=== PATIENT | female | born 1970 | race Caucasian/White ===

== ENCOUNTER → 2018-03-19 | Outpatient (CLI) | payer BC ==
[2018-03-19 12:33] LABS: Anisocytosis Slight; Basophils # (A) 0.1 k/uL (0-0.2); Basophils % (A) 1 %; Eosinophils # (A) 0.3 k/uL (0-0.7); Eosinophils % (A) 4 %; HCT 43.2 % (34.0-46.0); HGB 13.3 gm/dL (11.4-16.0); Hypochromasia Marked; Lymphocytes # (A) 2.1 k/uL (1.0-4.8); Lymphocytes % (A) 23 %; MCH 24.3 pg (25.0-35.0); MCHC 30.8 g/dL (31.0-37.0); MCV 78.9 fL (80.0-100.0); Mean Platelet Volume 7.3; Microcytosis Slight; Monocytes # (A) 0.5 k/uL (0-1.0); Monocytes % (A) 5 %; Neutrophils # (A) 5.6 k/uL (1.3-7.7); Neutrophils % (A) 64 %; Platelet Count 328 k/uL (150-450); RBC 5.48 m/uL (3.80-5.40); RDW 16.3 % (11.5-15.5); WBC 8.9 k/uL (3.8-10.6)
== END | disposition home or self-care (01) ==
LOC: LABPAT 11:48
PROVIDERS: ATTEND Anesthesiology
DX: Z01.812 Encounter for preprocedural laboratory examination (principal); N94.6 Dysmenorrhea, unspecified; N92.0 Excessive and frequent menstruation with regular cycle; Z01.818 Encounter for other preprocedural examination
CPT/HCPCS: 36415; 84132; 85025; 93005

== ENCOUNTER 2018-03-26 08:39 | Day surgery (SDC) | payer BC, OTHER ==
[2018-03-18 16:47] VITALS: BMI 47.2
[~2018-03-26 08:39] MED LIST: HYDROmorphone 0.5 MG/0.5 ML SYRINGE IVP PRN; LACTATED RINGERS 1,000 ML IV SCH; ONDANSETRON 4 MG/2 ML VIAL IVP PRN; Pre Op ABX Message 1 EACH MISC MISCELLANE ONE; fentaNYL (PF) 50 MCG/ML 2 ML AMP IV PRN
[2018-03-26 09:42] LABS: Glucose,Whole Blood 136 mg/dL (75-99)
[2018-03-26] MEDS ORDERED: LIDOCAINE 1% 20 ML VIAL (10MG/ML) FOR IV START INTRADERMA ONE (09:43)
[2018-03-26] MEDS ORDERED: DEXAMETHASONE SOD PHOS (MDV) 100 MG/10 ML VIAL IVP ONE (09:44)
[2018-03-26] MEDS ORDERED: ONDANSETRON 4 MG/2 ML VIAL IVP ONE (09:44)
[2018-03-26] MEDS ORDERED: IBUPROFEN 600 MG TAB PO PRN (11:15)
[2018-03-26] MEDS ORDERED: KETOROLAC 30 MG/ML 1 ML VIAL IVP PRN (11:15)
[2018-03-26] MEDS ORDERED: ONDANSETRON 4 MG/2 ML VIAL IVP PRN (11:15)
[2018-03-26] MEDS ORDERED: diphenhydrAMINE 50 MG/ML 1 ML VIAL IVP PRN (11:15)
[2018-03-26] MEDS ORDERED: SIMETHICONE 80 MG CHEWABLE PO PRN (11:15)
[2018-03-26] MEDS ORDERED: METOCLOPRAMIDE 5 MG/ML 2 ML VIAL IVP PRN (11:15)
[2018-03-26] MEDS ORDERED: Acetaminophen-Codeine 300-30mg TAB PO PRN ×2 (11:15)
[2018-03-26] MEDS ORDERED: SUCCINYLCHOLINE CHLORIDE VIAL 200 MG/10 ML VIAL IV ONE (11:20)
[2018-03-26] MEDS ORDERED: fentaNYL (PF) 50 MCG/ML 2 ML AMP ONE (11:20)
[2018-03-26] MEDS ORDERED: PROPOFOL 10 MG/ML 20 ML VIAL IV ONE (11:20)
[2018-03-26] MEDS ORDERED: KETOROLAC 30 MG/ML 1 ML VIAL ONE (11:20)
[2018-03-26] MEDS ORDERED: LIDOCAINE 1% INJ 10MG/ML (20 ML MDV) ONE (11:20)
[2018-03-26] MEDS ORDERED: MIDAZOLAM 2 MG/2 ML VIAL ONE (11:20)
[2018-03-26] MEDS ORDERED: LACTATED RINGERS 1,000 ML IV ONE (11:57)
--- NOTE | 2018-03-26 11:58 | P.OP ---
Date of Procedure: 03/26/18 Preoperative Diagnosis: #1. Menorrhagia #2. Dysmenorrhea Postoperative Diagnosis: Same Procedure(s) Performed: #1. Diagnostic hysteroscopy #2. Dilation and curettage #3. NovaSure endometrial ablation Anesthesia: KAELYN Surgeon: Giles Cosme Estimated Blood Loss (ml): 5 IV fluids (ml): 300 Urine output (ml): 75 Pathology: other (Endometrial curettings) Condition: stable Disposition: PACU Operative Findings: Preoperative pelvic examination demonstrated a roughly 5 week midplane mobile normal shaped uterus though the patient's habitus makes examination somewhat difficult. Intraoperatively, the cervix sounded to approximately 3 cm while uterus sounded to approximately 8 cm. Hysteroscopic views of the endometrial cavity demonstrated some shaggy tissue at the fundus with no evidence of polyps or apparent fibroids. The bilateral tubal ostia were seen. A small to moderate amount of tissue was curetted onto a Telfa and sent for pathological diagnoses. The setting for the NovaSure tool was a length of 5.0 cm, a width of 4.5 cm, total power 124 W. After a total run time of 59 seconds, the base unit read "procedure complete." The postprocedural result appears excellent. The patient is a poor candidate for vaginal hysterectomy should it become necessary. Description of Procedure: The patient was prepped and draped in usual fashion after general endotracheal anesthesia was administered by the anesthesiologist. A weighted speculum was placed and the bladder drained of approximately 75 mL of clear mian urine. The anterior lip of the cervix was grasped with single-tooth tenaculum and the cervix and uterus sounded to 3 cm and 8 cm respectively. Serial dilation was carried out to admit the diagnostic hysteroscope which was placed to the fundus and hysteroscopy carried out with the findings as noted above. There was no apparent pathology and the bilateral tubal ostia were seen. Further dilation was carried out to admit a small sharp curette which was utilized to thoroughly and circumferentially curet the endometrial cavity with the tissue being brought through the cervix onto a Telfa placed in the vagina. There was a small to moderate amount of tissue present. The sharp curet was set aside in favor of the NovaSure tool which was placed into the endometrial cavity and seated well at the settings are as noted above with a length of 5.0 cm and a width of 4.5 cm resulting in a total power 124 W. The cavity check was attempted and passed without difficulty. The tool was enabled and the run was started. After a total run time of 59 seconds, the base unit read "procedure complete." The 2 was closed, removed, and discarded and the diagnostic hysteroscope replaced into the in vitro cavity with resulting excellent result apparent. All instrumentation was removed from the patient. A small point of bleeding along the tenaculum sites was made hemostatic with pressure. Estimated blood loss for the entire case was less than 5 mL. There were no complications. All sponge, instrument, and needle counts were correct. The patient tolerated the procedure well and proceeded to the recovery room in stable condition.
[2018-03-26 12:12] VITALS: TEMP 96.8
[2018-03-26 12:19] VITALS: RESP 18
[2018-03-26 13:08] VITALS: BP 133/61
[2018-03-26 13:27] VITALS: PULSE 70
== END 2018-03-26 13:46 | disposition home or self-care (01) ==
LOC: OR 08:39
PROVIDERS: ATTEND Obstetrics & Gynecology
DX: N85.9 Noninflammatory disorder of uterus, unspecified (principal); N92.0 Excessive and frequent menstruation with regular cycle; N94.6 Dysmenorrhea, unspecified; E11.9 Type 2 diabetes mellitus without complications; I10 Essential (primary) hypertension; G47.33 Obstructive sleep apnea (adult) (pediatric); K21.9 Gastro-esophageal reflux disease without esophagitis; F17.210 Nicotine dependence, cigarettes, uncomplicated; Z88.2 Allergy status to sulfonamides; Z88.5 Allergy status to narcotic agent; Z79.1 Long term (current) use of non-steroidal anti-inflammatories (NSAID); Z79.84 Long term (current) use of oral hypoglycemic drugs; Z79.899 Other long term (current) drug therapy; Z83.3 Family history of diabetes mellitus; Z82.49 Family history of ischemic heart disease and other diseases of the circulatory system
CPT/HCPCS: 58563; 81025; 88305; J2250; J0330; J2405; J2001; J3010; J1885; J1100; J2704

== ENCOUNTER → 2019-07-18 | Outpatient (CLI) | payer BC ==
--- NOTE | 2019-07-18 12:04 | XR ---
EXAMINATION TYPE: XR chest 2V DATE OF EXAM: 07/18/2019 COMPARISON: 04/23/2014 TECHNIQUE: PA and lateral views submitted. HISTORY: Cough and congestion FINDINGS: The lungs are clear and there is no pneumothorax, pleural effusion, or focal pneumonia. Hypertrophic and degenerative change of the spine. IMPRESSION: 1. No acute process.
== END ==
LOC: RADXRMAIN 10:59
PROVIDERS: ATTEND Midwife
DX: J06.9 Acute upper respiratory infection, unspecified (principal)
CPT/HCPCS: 71046

== ENCOUNTER 2020-03-12 16:08 | Emergency (ER) | payer BC ==
--- NOTE | 2020-03-12 17:28 | ED ---
Lower Extremity Injury HPI - General Chief Complaint: Extremity Injury, Lower Stated Complaint: left foot /ankle pain Time Seen by Provider: 03/12/20 17:07 Source: patient Mode of arrival: wheelchair Limitations: physical limitation - History of Present Illness Initial Comments: Patient is a 49-year-old female presenting to the emergency Department with complaints of pain in left foot and ankle. Patient states she stepped on a large dog toy and her left foot overturned. She is unable to bear weight without significant pain. She is describing pain along the lateral aspect of her left foot and up into the left heel. She denies any previous fractures or surgeries to this foot. She denies hitting her head or any other injuries from this fall. She has no further complaints. - Related Data Home Medications Medication Instructions Recorded Confirmed Hydrochlorothiazide [Hydrodiuril] 50 mg PO DAILY 04/23/14 03/26/18 Omeprazole [PriLOSEC] 40 mg PO AC-BRKFST 04/23/14 03/26/18 ALPRAZolam [Xanax] 1 mg PO HS 03/18/18 03/26/18 Cetirizine HCl [Zyrtec] 10 mg PO DAILY PRN 03/18/18 03/26/18 Citalopram Hydrobromide [CeleXA] 20 mg PO DAILY 03/18/18 03/26/18 Empagliflozin/Linagliptin 1 each PO DAILY 03/18/18 03/26/18 [Glyxambi 25 mg-5 mg Tablet] Naproxen 500 mg PO BID PRN 03/18/18 03/26/18 Potassium Chloride [K-Tab ER] 10 meq PO DAILY 03/18/18 03/26/18 Thrive Supplement 1 tab PO DAILY 03/18/18 03/26/18 Allergies Allergy/AdvReac Type Severity Reaction Status Date / Time Sulfa (Sulfonamide Allergy Severe Anaphylaxis, Verified 03/12/20 16:37 Antibiotics) Hives hydrocodone bitartrate AdvReac "High Verified 03/12/20 16:37 [From Vicodin] dose" causes nausea & itching. Review of Systems ROS Statement: Those systems with pertinent positive or pertinent negative responses have been documented in the HPI. ROS Other: All systems not noted in ROS Statement are negative. Past Medical History Past Medical History: Diabetes Mellitus, GERD/Reflux, Sleep Apnea/CPAP/BIPAP Additional Past Medical History / Comment(s): C-PAP MACHINE, SEASONAL ALLERGIES, STRESS INDUCED IBS., SCIATICA, CARPAL TUNNEL SYNDROME BENI HANDS., MENORRHAGIA., STATES OCCASIONAL SWELLING IN HANDS & FEET. History of Any Multi-Drug Resistant Organisms: MRSA Date of last positivie culture/infection: 03/2006 MDRO Source:: LEFT CALF Past Surgical History: Cholecystectomy Additional Past Surgical History / Comment(s): Liposuction, SEVERE INJURY LEFT CALF WITH SEPSIS (2005) Past Anesthesia/Blood Transfusion Reactions: Postoperative Nausea & Vomiting (PONV) Additional Past Anesthesia/Blood Transfusion Reaction / Comment(s): PT STATES WAKES UP SINGING OR YELLING & PONV. MOTHER- PONV Past Psychological History: Anxiety, Depression Smoking Status: Former smoker Past Alcohol Use History: None Reported Past Drug Use History: None Reported - Past Family History Father Family Medical History: Cancer, Deep Vein Thrombosis (DVT), Renal Disease Additional Family Medical History / Comment(s): PROSTATE & STOMACH CANCER. DIALYSIS General Exam - General Exam Comments Initial Comments: GENERAL: Well-appearing, well-nourished and in no acute distress. HEAD: Atraumatic, normocephalic. EYES: Pupils equal round and reactive to light, extraocular movements intact, sclera anicteric, conjunctiva are normal. ENT: TMs normal, nares patent, oropharynx clear without exudates. Moist mucous membranes. NECK: Normal range of motion, supple without lymphadenopathy or JVD. LUNGS: Breath sounds clear to auscultation bilaterally and equal. No wheezes rales or rhonchi. HEART: Regular rate and rhythm without murmurs, rubs or gallops. ABDOMEN: Soft, nontender, normoactive bowel sounds. No guarding, no rebound. No masses appreciated. : Deferred EXTREMITIES: Pain with palpation along the lateral aspect of the left foot as well as over the lateral calcaneus. Pain with dorsiflexion. Neurovascular intact. Mild swelling to the area as well. No clubbing or cyanosis. NEUROLOGICAL: Normal speech PSYCH: Normal mood, normal affect. SKIN: Warm, Dry, normal turgor, no rashes or lesions noted. Limitations: physical limitation Course Vital Signs 03/12/20 03/12/20 16:33 19:18 Temperature 98.5 F 98.2 F Pulse Rate 67 71 Respiratory 18 16 Rate Blood Pressure 152/74 130/70 O2 Sat by Pulse 99 99 Oximetry Procedures - Orthopedic Splinting/Casting Injury #1 Side: left Lower Extremity Injury Location: ankle Lower Extremity Immobilizer: posterior splint, Hu wrap, synthetic pre-padded splint Medical Decision Making - Medical Decision Making Patient is a 49-year-old female here for left foot and ankle pain after tripping over a dog bone. X-rays of the left foot and ankle reveal an acute nondisplaced fracture of the anterior process of the calcaneus, a non-union old healed fracture of the proximal fifth metatarsal. There is also a subluxation of the proximal IP joint of the fifth digit. Patient was placed in a posterior splint. She will be nonweightbearing. She'll follow up with orthopedics. Patient is agreement with this plan of care. Case discussed with Dr. Kapadia. Disposition Clinical Impression: Left calcaneal fracture, Nondisplaced fracture of fifth left metatarsal bone, Fall Disposition: HOME SELF-CARE Condition: Stable Instructions (If sedation given, give patient instructions): Foot Fracture in Adults (ED) Additional Instructions: Please return to the Emergency Department if symptoms worsen or any other concerns. Keep splint in place until follow-up with orthopedics. Do not place any weight onto the left lower extremity. Follow-up with orthopedics. Is patient prescribed a controlled substance at d/c from ED?: No Referrals: Shar Coe MD [Primary Care Provider] - 1-2 days Tyshawn Maguire MD [STAFF PHYSICIAN] - 1-2 days
--- NOTE | 2020-03-12 17:43 | XR ---
EXAMINATION TYPE: XR ankle complete LT, XR foot complete LT DATE OF EXAM: 03/12/2020 CLINICAL HISTORY: Left ankle and foot pain after twisting injury TECHNIQUE: Frontal, lateral and oblique images of the left ankle and foot are obtained. COMPARISON: None. FINDINGS: Lucency overlying the anterior process of the calcaneus is seen on both ankle and foot exam s. Old nonunited fracture of the base of the fifth metatarsal is seen with large accessory ossicle of the navicular. Well-corticated fracture of the sesamoid bone is seen anterior to the calcaneus. Mult iple old probable prior fracture fragments are seen of the midfoot adjacent to the cuboid. Subluxatio n of the proximal interphalangeal joint is noted. Small plantar and Achilles heel spurs are seen. IMPRESSION: 1. Acute nondisplaced fracture of the anterior process of the calcaneus. 2. Nonunited old healed fracture of the proximal fifth metatarsal. 3. Subluxation of the proximal interphalangeal joint of the fifth digit of the left foot.
[2020-03-12] MEDS ORDERED: IBUPROFEN 600 MG TAB PO STA (17:54)
[2020-03-12] MEDS ORDERED: ACET/COD 300 MG/30 MG STARTER PACK 6 TAB BTL PO STA (18:48)
[2020-03-12 19:19] VITALS: BP 130/70; PULSE 71; RESP 16; TEMP 98.2
== END 2020-03-12 19:19 | disposition home or self-care (01) ==
LOC: EC 16:08
DX: S92.002A Unspecified fracture of left calcaneus, initial encounter for closed fracture (principal); S92.355A Nondisplaced fracture of fifth metatarsal bone, left foot, initial encounter for closed fracture; E11.9 Type 2 diabetes mellitus without complications; K21.9 Gastro-esophageal reflux disease without esophagitis; G47.30 Sleep apnea, unspecified; F41.9 Anxiety disorder, unspecified; F32.9 Major depressive disorder, single episode, unspecified; Z79.84 Long term (current) use of oral hypoglycemic drugs; Z79.899 Other long term (current) drug therapy; Z88.2 Allergy status to sulfonamides; Z88.5 Allergy status to narcotic agent; Z88.6 Allergy status to analgesic agent; Z87.891 Personal history of nicotine dependence; Z91.048 Other nonmedicinal substance allergy status; X50.1XXA Overexertion from prolonged static or awkward postures, initial encounter
CPT/HCPCS: 29515; 99283

== ENCOUNTER → 2020-05-06 | Outpatient (CLI) | payer BC, OTHER ==
--- NOTE | 2020-05-06 16:57 | US ---
EXAMINATION TYPE: US venous doppler duplex LE LT DATE OF EXAM: 05/06/2020 4:48 PM COMPARISON: NONE CLINICAL HISTORY: M80.9 PHLEBITIS AND THROMBOPHLEBITIS. Left leg pain and swelling, no h/o dvt SIDE PERFORMED: Left TECHNIQUE: The lower extremity deep venous system is examined utilizing real time linear array sonog swapna with graded compression, doppler sonography and color-flow sonography. VESSELS IMAGED: External Iliac Vein (EIV) Common Femoral Vein Deep Femoral Vein Greater Saphenous Vein * Femoral Vein Popliteal Vein Small Saphenous Vein * Proximal Calf Veins (* superficial vessels) FINDINGS: Grayscale, color doppler, spectral doppler imaging performed of the deep veins of the lower extremities. There is normal flow, compressibility, vascular waveforms. IMPRESSION: NEGATIVE FOR DVT, LEFT LOWER EXTREMITY:
== END | disposition home or self-care (01) ==
LOC: RADUSWWP 16:31
PROVIDERS: ATTEND Orthopaedic Surgery
DX: M25.562 Pain in left knee (principal); M17.12 Unilateral primary osteoarthritis, left knee; F17.210 Nicotine dependence, cigarettes, uncomplicated; E11.9 Type 2 diabetes mellitus without complications; M70.42 Prepatellar bursitis, left knee; M23.004 Cystic meniscus, unspecified medial meniscus, left knee; I80.9 Phlebitis and thrombophlebitis of unspecified site

== ENCOUNTER → 2020-12-10 | Outpatient (CLI) | payer BC ==
--- NOTE | 2020-12-13 11:49 | MM ---
Reason for exam: screening (asymptomatic). Last mammogram was performed 5 years and 8 months ago. History: Patient is nulliparous. Family history of breast cancer in aunt and breast cancer in mother at age 74. Physical Findings: A clinical breast exam by your physician is recommended on an annual basis and results should be correlated with mammographic findings. MG 3D Screening Mammo W/Cad Bilateral CC and MLO view(s) were taken. Prior study comparison: April 19, 2015, bilateral MG screening mammo w CAD. July 03, 2013, bilateral digital screening mammo w/CAD. There are scattered fibroglandular densities. There are benign appearing round calcifications bilaterally. There is no discrete abnormality. ASSESSMENT: Benign, BI-RAD 2 RECOMMENDATION: Routine screening mammogram of both breasts in 1 year.
== END | disposition home or self-care (01) ==
LOC: RADMAMWWP 10:58
PROVIDERS: ATTEND Obstetrics & Gynecology
DX: Z12.31 Encounter for screening mammogram for malignant neoplasm of breast (principal)
CPT/HCPCS: 77063; 77067

== ENCOUNTER 2021-09-07 06:40 | Day surgery (SDC) | payer BC ==
[2021-09-06 10:04] VITALS: BMI 47.4
[2021-09-07 07:28] VITALS: TEMP 97.1
[2021-09-07 07:42] LABS: Glucose,Whole Blood 165 mg/dL (75-99)
[2021-09-07] MEDS ORDERED: LACTATED RINGERS 1,000 ML IV ONE (07:42)
[2021-09-07] MEDS ORDERED: LIDOCAINE 1% (10MG/ML) FOR IV START INTRADERMA ONE (07:43)
[2021-09-07] MEDS ORDERED: PROPOFOL 10 MG/ML 20 ML VIAL IV ONE (07:58)
--- NOTE | 2021-09-07 08:18 | P.PCN ---
Date of Procedure: 09/07/21 Procedure(s) Performed: BRIEF HISTORY: Patient is a 51-year-old pleasant female scheduled for an elective colonoscopy as a part of screening for colon cancer PROCEDURE PERFORMED: Colonoscopy snare polypectomy. PREOPERATIVE DIAGNOSIS: Screening for colon cancer. IV sedation per Anesthesia. PROCEDURE: After informed consent was obtained, the patient, was brought into the endoscopy unit. IV sedation was administered by Anesthesia under continuous monitoring. Digital rectal examination was normal. Initially the Olympus CF-160 flexible video colonoscope was then inserted in the rectum, gradually advanced into the cecum without any difficulty. Careful examination was performed as the scope was gradually being withdrawn. Ileocecal valve and the appendiceal orifice were visualized and appeared normal. Prep was excellent. Mucosa of the cecum, ascending colon, transverse colon, descending colon appeared normal. The sigmoid colon there were 2 polyps measuring 5 and 6 mm in size both of which were removed by snare polypectomy. Rest of the, sigmoid colon, and rectum appeared normal. Retroflexion was performed in the rectum and no lesions were seen. The patient tolerated the procedure well. IMPRESSION: 5 and 6 mm sigmoid colon polyp status post polypectomy Rest of the colon appeared normal RECOMMENDATIONS: Findings of this examination were discussed with the patient as well as a family. She was advised to follow with the biopsy biopsy results. If the biopsy reveals adenoma she can have a repeat colonoscopy in 5 years.
[2021-09-07 08:22] VITALS: RESP 16
[2021-09-07 08:40] VITALS: BP 120/70; PULSE 77
== END 2021-09-07 09:00 | disposition home or self-care (01) ==
LOC: ORWHC2ENDO 06:40
PROVIDERS: ATTEND Internal Medicine Gastroenterology
DX: Z12.11 Encounter for screening for malignant neoplasm of colon (principal); D12.5 Benign neoplasm of sigmoid colon
CPT/HCPCS: 45385; 81025; J2704; 88305

== ENCOUNTER → 2022-01-04 | Outpatient (CLI) | payer BC, OTHER ==
--- NOTE | 2022-01-04 11:40 | XR ---
EXAMINATION TYPE: XR chest 2V DATE OF EXAM: 01/04/2022 COMPARISON: 07/18/2019 TECHNIQUE: PA and lateral views submitted. HISTORY: Shortness of breath FINDINGS: The lungs are clear and there is no pneumothorax, pleural effusion, or focal pneumonia. Hypertrophi c and degenerative change of the spine. Mild hyperinflation. Heart size normal. No overt failure. Hyp erinflation suggests COPD. IMPRESSION: 1. No acute process.
== END | disposition home or self-care (01) ==
LOC: RADXRMAIN 10:45
PROVIDERS: ATTEND Nurse Practitioner Family
DX: J06.9 Acute upper respiratory infection, unspecified (principal)
CPT/HCPCS: 71046

== ENCOUNTER → 2022-02-23 | Outpatient (CLI) | payer BC, OTHER ==
[2022-02-23 13:36] VITALS: BP 141/68; PULSE 83; RESP 16; TEMP 99.1; BMI 50.1
--- NOTE | 2022-02-23 15:33 | P.HPBAR ---
Bariatric H&P - History & Physicial H&P Date: 02/23/22 History & Physicial: Visit/CC: Initial Visit Patient initial contact: Initial weight: 118.501 kg Initial weight in pounds: 261.25 Height: 5 ft 0.5 in Initial BMI: 50.1 Last weight: Current weight: 118.501 kg Current weight in pounds: 261.25 Current BMI: 50.1 [place] body weight (based on NIH guidelines): 46.493 kg Excess body weight loss: 0.0% The patient is a 51 year-old F who presents for Bariatric Assessment. Patient presents today to discuss surgical weight loss. Patient is interested in sleeve gastrectomy. She suffers from type 2 diabetes, PCO S, sleep apnea, asthma, arthritis, GERD. Patient says she needs a knee replacement in the near future. BMI today is 50.1. Denies any history of DVT or dysphagia. No tobacco use for the last 4.5 years. Abdominal surgeries only include laparoscopic cholecystectomy. Review of Systems The patient denies any acute changes in vision or hearing, no dysphagia or odynophagia, no chest pain or shortness of breath, no dysuria or hematuria, no headache, no runny nose, no rectal bleeding or melena, no unexplained weight loss Past Medical History Past Medical History: CVA/TIA, Diabetes Mellitus, GERD/Reflux, Osteoarthritis (OA), Sleep Apnea/CPAP/BIPAP Additional Past Medical History / Comment(s): C-PAP MACHINE, SEASONAL ALLERGIES, STRESS INDUCED constipation or diarrhea, SCIATICA, CARPAL TUNNEL SYNDROME BENI HANDS., STATES OCCASIONAL SWELLING IN HANDS & FEET. TIA 2014- no residual effects, History of Any Multi-Drug Resistant Organisms: MRSA Year Discovered:: 03/2006 MDRO Source:: LEFT CALF Past Surgical History: Cholecystectomy, Orthopedic Surgery, Uterine Ablation Additional Past Surgical History / Comment(s): Liposuction, SEVERE INJURY LEFT CALF WITH SEPSIS (2005)-debridement, ORIF left foot, Past Anesthesia/Blood Transfusion Reactions: Family History of Problems w/ Anesthesia, Motion Sickness, Postoperative Nausea & Vomiting (PONV) Additional Past Anesthesia/Blood Transfusion Reaction / Comm: PT STATES WAKES UP SINGING OR YELLING & PONV. MOTHER- PONV Smoking Status: Former smoker - Past Family History Father Family Medical History: Cancer, Deep Vein Thrombosis (DVT) Additional Family Medical History / Comment(s): PROSTATE & STOMACH CANCER Mother Family Medical History: Cancer Surgical - Exam Vital Signs Temp Pulse Resp BP 99.1 F 83 16 141/68 02/23/22 13:33 02/23/22 13:33 02/23/22 13:33 02/23/22 13:33 Physical exam: General: Well-developed, well-nourished HEENT: Normocephalic, sclerae nonicteric Abdomen: Nontender, nondistended Extremities: No edema Neuro: Alert and oriented Bariatric Assessment & Plan (1) Morbid obesity with BMI of 50.0-59.9, adult Narrative/Plan: 51-year-old female with morbid obesity and associated comorbidities. Discussed surgical weight loss options including gastric bypass and sleeve gastrectomy in detail with the patient. Increased risk of long-term acid reflux possibly even resulting in conversion to gastric bypass discussed with her and her in detail. Patient remains interested in sleeve gastrectomy. It appears patient requires supervised weight loss. This will be followed closely. We'll tentatively plan EGD near the completion of her supervised weight loss process. Status: Acute Bariatric Checklist Checklist: Plan: Checklist: EGD: 1. Hiatal hernia: 2. H. Pylori: HgbA1c: Vitamin D: Smoking: Former smoker Primary care physician referral: Dr. West Psychiatry clearance: Cardiology clearance: Sleep study: Diet journal: VTE risk score: VTE risk level: Rehab needs at discharge:
== END ==
LOC: BARWHC3 13:07
PROVIDERS: ATTEND Surgery
DX: E66.01 Morbid (severe) obesity due to excess calories (principal); E11.9 Type 2 diabetes mellitus without complications; M19.90 Unspecified osteoarthritis, unspecified site; Z86.73 Personal history of transient ischemic attack (TIA), and cerebral infarction without residual deficits; Z87.891 Personal history of nicotine dependence; J45.909 Unspecified asthma, uncomplicated; Z68.43 Body mass index [BMI] 50.0-59.9, adult; Z86.718 Personal history of other venous thrombosis and embolism; Z88.2 Allergy status to sulfonamides; Z88.5 Allergy status to narcotic agent
CPT/HCPCS: 99202

== ENCOUNTER → 2022-05-09 | Outpatient (CLI) | payer BC, OTHER ==
[2022-05-09 14:15] LABS: Basophils # (A) 0.05 X 10*3/uL (0.00-0.10); Basophils % (A) 0.7 %; Eosinophils # (A) 0.26 X 10*3/uL (0.04-0.35); Eosinophils % (A) 3.5 %; HGB 13.6 g/dL (12.0-15.0); Immature Grans, Automated 0.1 %; Lymphocytes % (A) 22.6 %; MCH 27.7 pg (27.0-32.0); MCHC 30.9 g/dL (32.0-37.0); MCV 89.6 fL (80.0-97.0); Mean Platelet Volume 11.5 fL (9.5-12.2); Monocytes # (A) 0.66 X 10*3/uL (0.20-1.00); Monocytes % (A) 8.8 %; NRBC Per 100 WBC 0 /100 WBCS (0.0-0.0); Neutrophils # (A) 4.83 X 10*3/uL (1.80-7.70); Neutrophils % (A) 64.3 %; Platelet Count 258 X 10*3/uL (140-440); RBC 4.91 X 10*6/uL (4.10-5.20); RDW 13.8 % (11.5-14.5); WBC 7.51 X 10*3/uL (4.50-10.00)
[2022-05-09 16:29] LABS: ALT 80 U/L (8-44); AST 50 U/L (13-35); African American GFR (CKD) 99.6 (60.0-200.0); Albumin 4.4 g/dL (3.8-4.9); Albumin/Globulin Ratio 1.57 (1.60-3.17); Alkaline Phosphatase 99 U/L (41-126); BUN/Creat Ratio 16.13 Ratio (12.00-20.00); Blood Urea Nitrogen 12.9 mg/dL (9.0-27.0); Calcium 9.4 mg/dL (8.7-10.3); Carbon Dioxide 24.9 mmol/L (20.0-27.5); Chloride 96 mmol/L (96-109); Chol/HDL Ratio 2.63 Ratio; Globulin 2.8 g/dL (1.6-3.3); Glucose 305 mg/dL (70-110); Iron 70 ug/dL (50-170); LDL Cholesterol,Calculated 66.6 mg/dL (0.0-131.0); Potassium 3.6 mmol/L (3.5-5.5); Sodium 136 mmol/L (135-145); Total Protein 7.2 g/dL (6.2-8.2)
== END | disposition home or self-care (01) ==
LOC: LABWHC1 09:03
PROVIDERS: ATTEND Surgery
DX: E11.9 Type 2 diabetes mellitus without complications (principal); E66.01 Morbid (severe) obesity due to excess calories; K90.89 Other intestinal malabsorption
CPT/HCPCS: 36415; 80053; 80061; 80323; 82306; 82607; 82746; 83036; 83540; 84425; 84439; 84443; 85025; 93005

== ENCOUNTER 2022-08-22 07:49 | Day surgery (SDC) | payer BC, OTHER ==
[2022-08-22] MEDS ORDERED: LACTATED RINGERS 1,000 ML IV SCH (08:24)
[2022-08-22] MEDS ORDERED: LIDOCAINE 1% (10MG/ML) FOR IV START INTRADERMA PRN (08:24)
[2022-08-22] MEDS ORDERED: LACTATED RINGERS 1,000 ML IV ONE ×2 (08:24)
[2022-08-22 08:34] VITALS: RESP 16; TEMP 98.4
[2022-08-22 08:47] LABS: Glucose,Whole Blood 238 mg/dL (70-110)
[2022-08-22] MEDS ORDERED: PROPOFOL 10 MG/ML 20 ML VIAL IV ONE (09:02)
[2022-08-22] MEDS ORDERED: LIDOCAINE 2% INJ 20 MG/ML (2 ML VIAL) ONE (09:02)
--- NOTE | 2022-08-22 09:06 | P.GSHP ---
History of Present Illness H&P Date: 08/22/22 Chief Complaint: Gerd 51-year-old female here today for upper endoscopy. Patient being evaluated for possible bariatric surgery. Patient with chronic reflux. Takes omeprazole daily. Past Medical History Past Medical History: CVA/TIA, Diabetes Mellitus, GERD/Reflux, Osteoarthritis (OA), Sleep Apnea/CPAP/BIPAP Additional Past Medical History / Comment(s): C-PAP MACHINE, SEASONAL ALLERGIES, ibs, SCIATICA, CARPAL TUNNEL SYNDROME BENI HANDS., STATES OCCASIONAL SWELLING IN HANDS & FEET. TIA 2014- no residual effects, shingles History of Any Multi-Drug Resistant Organisms: MRSA Date of last positivie culture/infection: 03/2006 MDRO Source:: LEFT CALF Past Surgical History: Cholecystectomy, Orthopedic Surgery, Uterine Ablation Additional Past Surgical History / Comment(s): Liposuction, SEVERE INJURY LEFT CALF WITH SEPSIS (2005)-debridement, ORIF left foot, Past Anesthesia/Blood Transfusion Reactions: Family History of Problems w/ Anesthesia, Motion Sickness, Postoperative Nausea & Vomiting (PONV) Additional Past Anesthesia/Blood Transfusion Reaction / Comment(s): PT STATES WAKES UP SINGING OR YELLING & PONV. MOTHER- PONV Smoking Status: Former smoker - Past Family History Father Family Medical History: Cancer, Deep Vein Thrombosis (DVT) Additional Family Medical History / Comment(s): PROSTATE & STOMACH CANCER Mother Family Medical History: Cancer Medications and Allergies Home Medications Medication Instructions Recorded Confirmed Type Omeprazole [PriLOSEC] 40 mg PO AC-BRKFST 04/23/14 08/22/22 History Cetirizine HCl [Zyrtec] 10 mg PO DAILY PRN 03/18/18 08/22/22 History Citalopram Hydrobromide [CeleXA] 40 mg PO QAM 03/18/18 08/22/22 History Potassium Chloride [K-Tab ER] 10 meq PO DAILY 03/18/18 08/22/22 History ALPRAZolam [Xanax] 0.5 mg PO HS 07/11/21 08/22/22 History Atorvastatin [Lipitor] 20 mg PO QAM 07/11/21 08/22/22 History Meloxicam 7.5 mg PO QAM 07/11/21 08/22/22 History hydroCHLOROthiazide 25 mg PO QAM 07/11/21 08/22/22 History Cholecalciferol [Vitamin D3 (125 250 mcg PO DAILY 09/06/21 08/22/22 History Mcg = 5000 Iu)] Mv-Min/Folic/Vit K/Lut/Gvli902 1 each PO DAILY 09/06/21 08/22/22 History [Alive Women's 50 Plus Tablet] Glimepiride [Amaryl] 4 mg PO BID 08/17/22 08/22/22 History Multivit-Min/Folic Acid/Biotin 133.3 mcg PO DAILY 08/17/22 08/22/22 History [Hair, Skin and Nails Softgel] Tirzepatide [Mounjaro] 10 mg SQ SA 08/17/22 08/22/22 History Allergies Allergy/AdvReac Type Severity Reaction Status Date / Time Sulfa (Sulfonamide Allergy Severe Anaphylaxis, Verified 08/22/22 08:25 Antibiotics) Hives hydrocodone bitartrate AdvReac "High Verified 08/22/22 08:25 [From Vicodin] dose" causes nausea & itching. Surgical - Exam Vital Signs Temp Pulse Resp BP Pulse Ox 98.4 F 74 16 155/76 97 08/22/22 08:32 08/22/22 08:32 08/22/22 08:32 08/22/22 08:32 08/22/22 08:32 Physical exam: General: Well-developed, well-nourished HEENT: Normocephalic, sclerae nonicteric Abdomen: Nontender, nondistended Extremities: No edema Neuro: Alert and oriented Results - Labs Abnormal Lab Results - Last 24 Hours (Table) 08/22/22 Range/Units 08:44 POC Glucose (mg/dL) 238 H (70-110) mg/dL Assessment and Plan (1) GERD (gastroesophageal reflux disease) Narrative/Plan: Will proceed with upper endoscopy. Current Visit: Yes Status: Acute Code(s): K21.9 - GASTRO-ESOPHAGEAL REFLUX DISEASE WITHOUT ESOPHAGITIS SNOMED Code(s): 517285567
--- NOTE | 2022-08-22 09:15 | P.PCN ---
Date of Procedure: 08/22/22 Procedure(s) Performed: Preoperative Dx: GERD, presurgical Postoperative Dx: Retained gastric food, gastritis, cardia gastric nodule Procedure: EGD with Bx Anesthesia: Sedation Endoscopist: Dr. Hardy Specimens: Antrum, gastric nodule Endoscopic Procedure: The patient was on the endoscopy table in the left decubitus position. The Olympus gastroscope was inserted into the oropharynx and passed under direct visualization to the region of the third portion of the duodenum. From that point the scope was slowly withdrawn inspecting all surfaces carefully. There were no neoplastic inflammatory or polypoid lesions throughout the duodenum. The pylorus was widely patent. The stomach was carefully inspected. There was retained food seen in the body of the stomach and the prepyloric region. There was mild gastritis present. A biopsy of antrum took place. In the proximal stomach at the cardia there was a small superficial nodule that appeared mildly erythematous. This was biopsied separately. Ball hiatal hernia was seen. The esophagus was then carefully examined. There were no neoplastic inflammatory or polypoid lesions throughout the visualized esophagus. The patient was then taken to the recovery room in stable condition per anesthesia guidelines. Recommendations: Await biopsy results. Continue antiacid therapy. Patient with suspected gastroparesis. Patient with chronic reflux as well. We will recommend patient consider gastric bypass for her bariatric procedure given these findings and risks for post sleeve gastrectomy reflux.
[2022-08-22 09:35] VITALS: BP 130/69; PULSE 82
== END 2022-08-22 10:11 | disposition home or self-care (01) ==
LOC: ORWHC2ENDO 07:49
PROVIDERS: ATTEND Surgery
DX: K29.50 Unspecified chronic gastritis without bleeding (principal); K31.7 Polyp of stomach and duodenum; K21.9 Gastro-esophageal reflux disease without esophagitis; Z87.891 Personal history of nicotine dependence; M19.90 Unspecified osteoarthritis, unspecified site; G47.30 Sleep apnea, unspecified; E11.9 Type 2 diabetes mellitus without complications
CPT/HCPCS: 81025; 88305; 43239; J2704; J2001

== ENCOUNTER → 2023-04-05 | Outpatient (CLI) | payer BC, OTHER ==
--- NOTE | 2023-04-06 20:16 | MM ---
Reason for Exam: Screening (asymptomatic). Last mammogram was performed 2 year(s) and 4 month(s) ago. Patient History: Menarche at age 11. Patient has no children. Perimenopausal. Maternal aunt had breast cancer. Mother had breast cancer, age 74. Last menstrual period: 03/20/2023 Risk Values: Vannesa 5 year model risk: 2.2%. NCI Lifetime model risk: 18.0%. Prior Study Comparison: 07/03/2013 Bilateral Screening Mammogram, [facility]. 04/19/2015 Bilateral Screening Mammogram, [facility]. 12/10/2020 Bilateral Screening Mammogram, [facility]. Tissue Density: There are scattered fibroglandular densities. Findings: Analyzed By CAD. Benign bilateral oil cyst calcifications. There is no suspicious group of microcalcifications or new suspicious mass in either breast. Overall Assessment: Benign, BI-RAD 2 Management: Screening Mammogram of both breasts in 1 year. . Patient should continue monthly self-breast exams. A clinical breast exam by your physician is recommended on an annual basis. This exam should not preclude additional follow-up of suspicious palpable abnormalities. Note on Vannesa scores and lifetime risk: 1. A Vannesa score greater than 3% is considered moderate risk. If this is the case, consider specialist referral to assess eligibility for a risk reducing agent. 2. If overall lifetime risk for the development of breast cancer is 20% or higher, the patient may qualify for future screening with alternating mammogram and breast MRI. Electronically signed and approved by: Kimber Diaz M.D. Radiologist
== END | disposition home or self-care (01) ==
LOC: RADMAMWWP 13:17
PROVIDERS: ATTEND Obstetrics & Gynecology
DX: Z12.31 Encounter for screening mammogram for malignant neoplasm of breast (principal); Z80.3 Family history of malignant neoplasm of breast
CPT/HCPCS: 77063; 77067

== ENCOUNTER → 2024-06-27 | Outpatient (CLI) | payer BC | END | disposition home or self-care (01) | LOC: LABPAT 12:40 | PROVIDERS: ATTEND Orthopaedic Surgery | DX: Z01.818 Encounter for other preprocedural examination | CPT/HCPCS: 87070 ==

== ENCOUNTER 2024-07-08 07:38 | Observation (INO) | payer BC ==
[2024-07-01 15:38] VITALS: BMI 48.8
--- NOTE | 2024-07-07 08:58 | P.HPOR ---
History of Present Illness H&P Date: 07/07/24 Chief Complaint: Left knee pain The patient is a 53-year-old female who presents with progressive left knee pain over the past 4 years. She notes anterior and medial pain with weightbearing activities. She notes swelling and intermittent giving out. She's tried medications along with injections without much relief. She is recently lost a substantial amount of weight as well. Review of Systems Per HPI Past Medical History Past Medical History: CVA/TIA, Diabetes Mellitus, GERD/Reflux, Hyperlipidemia, Osteoarthritis (OA), Sleep Apnea/CPAP/BIPAP Additional Past Medical History / Comment(s): C-PAP MACHINE, SEASONAL ALLERGIES, ibs, SCIATICA, CARPAL TUNNEL SYNDROME BENI HANDS., STATES OCCASIONAL SWELLING IN HANDS & FEET. TIA 2014- no residual effects, shingles-NONE NOW History of Any Multi-Drug Resistant Organisms: MRSA Date of last positivie culture/infection: 03/2006 MDRO Source:: LEFT CALF Past Surgical History: Cholecystectomy, Orthopedic Surgery, Uterine Ablation Additional Past Surgical History / Comment(s): Liposuction, SEVERE INJURY LEFT CALF WITH SEPSIS (2005)-debridement, ORIF left foot, COLONOSCOPY, EGD Past Anesthesia/Blood Transfusion Reactions: Family History of Problems w/ Anesthesia, Motion Sickness, Postoperative Nausea & Vomiting (PONV) Additional Past Anesthesia/Blood Transfusion Reaction / Comment(s): PT STATES WAKES UP SINGING OR YELLING & PONV. MOTHER- PONV Smoking Status: Former smoker - Past Family History Father Family Medical History: Cancer Additional Family Medical History / Comment(s): PROSTATE & STOMACH CANCER Mother Family Medical History: Cancer Medications and Allergies Home Medications Medication Instructions Recorded Confirmed Type Omeprazole [PriLOSEC] 40 mg PO AC-BRKFST 04/23/14 07/01/24 History Cetirizine HCl [Zyrtec] 10 mg PO DAILY PRN 03/18/18 07/01/24 History Citalopram Hydrobromide [CeleXA] 40 mg PO QAM 03/18/18 07/01/24 History Potassium Chloride [K-Tab ER] 10 meq PO DAILY 03/18/18 07/01/24 History ALPRAZolam [Xanax] 0.5 mg PO HS 07/11/21 07/01/24 History Atorvastatin [Lipitor] 20 mg PO QAM 07/11/21 07/01/24 History Meloxicam 7.5 mg PO QAM 07/11/21 07/01/24 History Mv-Min/Folic/Vit K/Lut/Dfoj740 1 each PO DAILY 09/06/21 07/01/24 History [Alive Women's 50 Plus Tablet] Glimepiride [Amaryl] 4 mg PO DAILY 08/17/22 07/01/24 History Multivit-Min/Folic Acid/Biotin 133.3 mcg PO DAILY 08/17/22 07/01/24 History [Hair, Skin and Nails Softgel] Lidocaine 5% Patch [Lidoderm] 1 patch TOPICAL DAILY PRN 07/01/24 07/01/24 History Spironolactone 25 mg PO DAILY 07/01/24 07/01/24 History Tirzepatide [Mounjaro] 15 mg SQ FR 07/01/24 07/01/24 History Allergies Allergy/AdvReac Type Severity Reaction Status Date / Time Sulfa (Sulfonamide Allergy Severe Anaphylaxis, Verified 07/01/24 15:12 Antibiotics) Hives hydrocodone bitartrate AdvReac "High Verified 07/01/24 15:12 [From Vicodin] dose" causes nausea & itching. Physical Examination - Knee left Appearance: effusion Effusion grade: grade 1 Varus alignment in stance: 10 degrees Tenderness with palpation: anterior, medial Pain: throughout ROM Gait: limping ROM: extension: -10 degrees ROM: flexion: 85 degrees Crepitus with motion: Yes Strength: extension: 5/5 Strength: flexion: 5/5 Meniscal tests: medial meniscal tests: positive, medial joint line pain: positive Results The patient is a well-developed well-nourished female approximately 5 foot tall, 255 pounds of endomorph habitus. HEENT exam is nonfocal, neck is supple. She has painless passive motion of her left hip. Straight leg raise is negative. She is tender about the medial joint line of the left knee. Collaterals are stable, Vania was negative, Ginette's is equivocal. Her distal neurovascular appears intact in the left lower extremity. She has genuine varum alignment. - Diagnostic results Knee x-ray: image reviewed (X-rays of the left knee obtained in the office show severe medial and patellofemoral compartment narrowing with [id number] changes and subchondral sclerosis.) Assessment and Plan Assessment: Left knee severe medial and patellofemoral compartment osteoarthrosis Obesity Plan: I talked to the patient at length regarding her condition along with treatment options. At this point she is quite symptomatic and limited because of pain related to her osteoarthrosis despite conservative measures. After a thorough discussion she opts to proceed with surgery. We will plan to proceed with left total knee arthroplasty. Risks and benefits were discussed at length in layman's terms. We will institute DVT prophylaxis postoperatively.
[~2024-07-08 07:38] MED LIST changes: -HYDROmorphone 0.5 MG/0.5 ML SYRINGE IVP PRN; -LACTATED RINGERS 1,000 ML IV SCH; -ONDANSETRON 4 MG/2 ML VIAL IVP PRN; -Pre Op ABX Message 1 EACH MISC MISCELLANE ONE; +TRANEXAMIC 1,000 MG/100ML-NACL 1,000 MG in SALINE 1 100ML.BAG IVPB PRN
[2024-07-08 08:38] LABS: Glucose,Whole Blood 183 mg/dL (70-110)
[2024-07-08] MEDS: LACTATED RINGERS 1,000 ML IV SCH (08:50)
[2024-07-08] MEDS: ACETAMINOPHEN TAB 500 MG TAB PO PRN (08:50)
[2024-07-08] MEDS: ONDANSETRON 4 MG/2 ML VIAL IVP ONE (08:50)
[2024-07-08] MEDS: MELOXICAM 7.5 MG TAB PO PRN (08:50)
[2024-07-08] MEDS: IV FLUID CONTINUATION 1,000 ML IV ONE (08:53)
[2024-07-08] MEDS: MIDAZOLAM 2 MG/2 ML VIAL IVP ONE (08:58)
[2024-07-08] MEDS: fentaNYL (PF) 50 MCG/ML 2 ML AMP IVP ONE (09:00)
--- NOTE | 2024-07-08 10:18 | P.ANPRN ---
Procedure Note - Anesthesia - Nerve Block Performed Left Adductor Canal Infusion Time Out Performed: Yes (858) Date of Procedure: 07/08/24 Procedure Start Time: 08:59 Procedure Stop Time: 09:04 Location of Patient: PreOp Indication: Acute Post-Operative Pain, Requested by Surgeon Specifically requested for management of pain by : Kamaljit Arguelles Sedation Type: Sedate with meaningful contact maintained Preparation: Sterile Prep, Sterile Dressing Position: Supine Catheter Depth at Skin (cm): 8 Catheter: Indwelling Needle Types: Pajunk Needle Gauge: 18 Ultrasound used to visualize needle placement: Yes Ultrasound used to observe medication spread: Yes Injectate: 0.5% Ropivacaine (see comment for volume) (15cc +10cc nacl pf) Blood Aspirated: No Pain Paresthesia on Injection Noted: No Resistance on Injection: Normal Image Stored and Saved: Yes Events: Uneventful and Well Tolerated
--- NOTE | 2024-07-08 10:19 | P.ANPRN ---
Procedure Note - Anesthesia - Nerve Block Performed Left iPack Single Time Out Performed: Yes (858) Date of Procedure: 07/08/24 Procedure Start Time: : Procedure Stop Time: : Location of Patient: PreOp Indication: Acute Post-Operative Pain, Requested by Surgeon Specifically requested for management of pain by DrTisha: Kamaljit Arguelles Sedation Type: Sedate with meaningful contact maintained Preparation: Sterile Prep Position: Supine Catheter: None Needle Types: Pajunk Needle Gauge: 21 Ultrasound used to visualize needle placement: Yes Ultrasound used to observe medication spread: Yes Injectate: 0.5% Ropivacaine (see comment for volume) (15cc +10cc nacl pf) Blood Aspirated: No Pain Paresthesia on Injection Noted: No Resistance on Injection: Normal Image Stored and Saved: Yes Events: Uneventful and Well Tolerated
[2024-07-08] MEDS ORDERED: TRANEXAMIC 1,000 MG/100ML-NACL PREMIX BAG ONE (10:49)
[2024-07-08] MEDS ORDERED: LIDOCAINE 1% INJ 10MG/ML (20 ML MDV) ONE (10:49)
[2024-07-08] MEDS ORDERED: GLYCOPYRROLATE 0.2 MG/ML 2 ML VIAL ONE (10:49)
[2024-07-08] MEDS ORDERED: SODIUM CHLORIDE 0.9% (PF) 10 ML VIAL ONE (10:49)
[2024-07-08] MEDS ORDERED: KETAMINE HCL IN 0.9 % NACL 50 MG/5 ML SYRINGE ONE (10:49)
[2024-07-08] MEDS ORDERED: fentaNYL (PF) 50 MCG/ML 2 ML AMP ONE (10:49)
[2024-07-08] MEDS ORDERED: ROPIVACAINE 5 MG/ML 30 ML VIAL ONE (10:49)
[2024-07-08] MEDS ORDERED: PROPOFOL 10 MG/ML 20 ML VIAL IV ONE (10:49)
[2024-07-08] MEDS ORDERED: MIDAZOLAM 2 MG/2 ML VIAL ONE (10:49)
[2024-07-08] MEDS: ceFAZolin 1,000 MG in SODIUM CHLORIDE 0.9% 1,000 ML IRRIGATION ONE (11:14)
[2024-07-08] MEDS: LACTATED RINGERS 1,000 ML IV ONE (12:05)
[2024-07-08] MEDS ORDERED: HYDROcodone/APAP 5-325MG 1 EACH TAB PO PRN (12:40)
[2024-07-08] MEDS ORDERED: ONDANSETRON 4 MG/2 ML VIAL IVP PRN (12:40)
[2024-07-08] MEDS ORDERED: MAGNESIUM HYDROXIDE 2,400 MG/30 ML CUP PO PRN (12:40)
[2024-07-08] MEDS ORDERED: NALOXONE 0.4 MG/ML 1 ML VIAL IV PRN (12:40)
[2024-07-08] MEDS ORDERED: HYDROmorphone 0.5 MG/0.5 ML SYRINGE IVP PRN (12:40)
--- NOTE | 2024-07-08 13:03 | P.OP ---
Date of Procedure: 07/08/24 Preoperative Diagnosis: Left knee severe tricompartmental osteoarthrosis Postoperative Diagnosis: Same Procedure(s) Performed: Left total knee arthroplastycementedposterior stabilized Implants: DePuy attune size 5 narrow cemented femoral component, size 4 cemented tibial component with a 14 x 50 mm stem extension, 9 mm articular surface, 32 mm cemented patellar component. This is a posterior stabilized implant. Anesthesia: regional, spinal Surgeon: Kamaljit Arguelles Health Analyst #1: Dariel Ross Estimated Blood Loss (ml): 50 Pathology: none sent Condition: stable Disposition: PACU Indications for Procedure: The patient is a 53-year-old female who presents with progressive left knee pain secondary to osteoarthrosis despite conservative measures. A discussion of the risks and benefits of operative intervention versus continued conservative measures was made with the patient. She opted to proceed with surgery. Operative risks include infection, neurovascular injury, development of blood clots, fracture, possible component loosening/failure and possible need for subsequent procedures was discussed. Informed consent was obtained. Operative Findings: As below Description of Procedure: The patient was brought to the operating room, and after induction of spinal anesthesia the left lower extremity was prepped and draped in a normal fashion. The tourniquet was inflated to 270 mm marker. A longitudinal incision extending 3 finger breaths above the superior pole of patella extending to the medial aspect the tibial tubercle was then made. The skin and subcutaneous tissues were divided sharply. Electrocautery was used for hemostasis. A medial parapatellar arthrotomy was performed. The medial soft tissues to include the superficial and deep portions of the medial collateral ligament were elevated subperiosteally. The patella was everted. A portion of the retropatellar fat pad was excised sharply. The anterior cruciate ligament was sacrificed. Blunt retractors were placed. A starting hole was made in the distal femur 1 cm anterior to the posterior cruciate ligament origin. An intramedullary femoral guide was then inserted planning on 5 valgus distal cut with 9 mm distal resection. The cutting block was pinned in place. The distal cut was then made. The posterior referencing sizing guide was utilized. I felt size 5 narrow was most appropriate. 3 of external rotation was built into the system and verified off the trans-epicondylar axis and the posterior condyles. The cutting block was pinned in place. The anterior, posterior, and chamfer cuts then made. Bone fragments were removed. The intercondylar guide was placed and the notch cut was made with a sagittal saw. The bone block was removed in one fragment. The trial component was then placed. There is good anterior to posterior and medial to lateral fit. The distal peg holes were drilled. The trial component was removed. Attention was then paid towards preparing the proximal tibia. An extra medullary guide was utilized in line with the tibial shaft and second metatarsal distally. I planned on 2 mm resection from the medial compartment. The cutting block was pinned in place. The proximal tibial cut was then made. The bone was removed in one fragment. The remnants of the medial and lateral menisci were excised at the capsular junction with electrocau rigoberto. The tibia sized most appropriately at size 4. The trial femoral and tibial components were placed along with a 9 mm articular surface. I was able to obtain full flexion and extension with internal and external rotation. After several flexion and extension cycles, the tibial rotation was marked with electrocautery line with the medial one third of the tibial tubercle. Attention was then paid towards preparing the patella. A patella reamer was utilized taking stem to 14 mm of bone stock. A good flush cut was made. The patella sized most appropriately 32 mm. The peg holes were drilled. The trial components placed. I had good patellofemoral tracking with no hands technique. The trial components were then removed. The tibia was prepared in the appropriate rotation with appropriate drill and keel punch planning on a 14 x 50 mm stem extension. The posterior osteophytes were removed with a curved osteotome. The flexion and extension gaps were checked and felt to be symmetric at 9 mm. A trial components were then removed. The bony surfaces were prepared with pulsatile lavage and dried. The tibial component was then cemented place was fully seated. Excess cement was removed. The femoral component cemented place and was fully seated. Excess cement was removed. The trial 9 mm articular surface was placed and the knee was put in full extension. The patella component was cemented place. After the cement had sufficiently hardened, the knee was again taken through a range of motion. Again I was able to obtain full flexion and extension with varus and valgus stress. The trial 9 mm articular surface was removed and the final one inserted. This was fully seated. Care was taken to avoid any soft tissue interposition. Pulsatile lavage was again utilized. The medial parapatellar arthrotomy was closed with #2 Ethibond suture. The tourniquet was deflated with approximately 60 minutes total tourniquet time. Final hemostasis was obtained with the cautery. There was minimal bleeding therefore a deep drain was not placed. The subcutaneous tissues were reapproximated with interrupted 2-0 Vicryl sutures. The skin was reapproximated with 3-0 subcuticular strata fix suture. Skin tape and adhesive was applied. A sterile dressing was applied. The patient was awoken from sedation and transferred to recovery room in good condition. Blood loss was estimated at 50 mL. No complications were incurred. Sponge and needle counts were correct at the end of the case. Dariel HORTON assisted during the major components of this case to include exposure, bone resection, implantation, and closure.
--- NOTE | 2024-07-08 13:22 | XR ---
EXAMINATION TYPE: XR knee limited LT DATE OF EXAM: 07/08/2024 COMPARISON: NONE TECHNIQUE: Two views submitted HISTORY: Post op FINDINGS: There is a prosthetic knee in near anatomic alignment. There is soft tissue edema and soft tissue e mphysema. IMPRESSION: 1. Postoperative change. [facility], , 07/08/2024 1:20 PM
[2024-07-08] MEDS: DEXAMETHASONE SOD PHOSPHATE 4 MG/ML 1 ML VIAL IV ONE (14:03)
[2024-07-08 14:28] LABS: Glucose,Whole Blood 150 mg/dL (70-110)
[2024-07-08] MEDS: ROPIVACAINE 1,100 MG, SODIUM CHLORIDE 0.9% 500 ML 330 ML, EMPTY PAIN BALL 1 EACH MISCELLANE PRN (14:36)
[2024-07-08] MEDS: HYDROmorphone 1 MG/ML 1 ML SYRINGE IVP PRN (15:08)
[2024-07-08] MEDS ORDERED: LORATADINE 10 MG TAB PO PRN (15:38)
[2024-07-08] MEDS ORDERED: DEXTROSE 50% SYRINGE 50 ML IVP PRN ×2 (15:40)
[2024-07-08] MEDS: hydrOXYzine pamoate 25 MG CAP PO PRN (16:23)
[2024-07-08] MEDS: HYDROcodone/APAP 7.5-325MG 1 EACH TAB PO PRN (16:24)
[2024-07-08 16:40] LABS: Glucose,Whole Blood 204 mg/dL (70-110)
[2024-07-08] MEDS: INSULIN ASPART (NovoLOG) 100 UNIT/ML VIAL SQ SCH (16:52)
[2024-07-08] MEDS ORDERED: LIDOCAINE 4% PATCH TOPICAL PRN (17:44)
[2024-07-08] MEDS: traMADol 50 MG TAB PO SCH (18:08)
[2024-07-08 20:12] LABS: Glucose,Whole Blood 205 mg/dL (70-110)
[2024-07-08] MEDS: ALPRAZolam 0.5 MG TAB PO SCH (20:49)
[2024-07-08] MEDS: SENNOSIDES-DOCUSATE SODIUM 1 EACH TAB PO SCH (20:49)
[2024-07-09 06:11] LABS: Glucose,Whole Blood 203 mg/dL (70-110)
[2024-07-09] MEDS: PANTOPRAZOLE 40 MG TABLET PO SCH (06:33)
[2024-07-09 09:04] LABS: Basophils # (A) 0.03 X 10*3/uL (0.00-0.10); Basophils % (A) 0.3 %; Eosinophils # (A) 0.19 X 10*3/uL (0.04-0.35); Eosinophils % (A) 2.2 %; HCT 36.2 % (37.2-46.3); HGB 11.8 g/dL (12.0-15.0); Lymphocytes # (A) 1.65 X 10*3/uL (0.90-5.00); MCH 28.9 pg (27.0-32.0); MCHC 32.6 g/dL (32.0-37.0); MCV 88.7 FL (80.0-97.0); Mean Platelet Volume 10.7 FL (9.5-12.2); Monocytes # (A) 1.08 X 10*3/uL (0.20-1.00); Monocytes % (A) 12.4 %; NRBC Per 100 WBC 0 X 10*3/uL (0.00-0.01); Neutrophils # (A) 5.69 X 10*3/uL (1.80-7.70); Neutrophils % (A) 65.6 %; Platelet Count 245 X 10*3/uL (140-440); RBC 4.08 X 10*6/uL (4.10-5.20); RDW 14.4 % (11.5-14.5); WBC 8.68 X 10*3/uL (4.50-10.00)
--- NOTE | 2024-07-09 09:12 | P.PN ---
Progress Note - Text Progress Note Date: 07/09/24 patient was seen and evaluated at bedside. Status post postoperative day 1 for Left total knee arthroplasty patient had adductor canal catheter for postop pain control. Patient rated pain at rest 5-6 out of 10 in severity. Patient describes pain is aching, throbbing type on the sides of the knee and back of the knee. Patient started walking with support. With activity patient pain levels are 9-10 out of 10 in severity. With the help of oral pain medications pain levels are tolerable. Patient denied any weakness/ numbness in lower extremities. patient denied any fever, pain over the catheter site. Physical exam: Patient vital signs stable Patient is alert awake oriented 3 responding to all questions appropriately Examination of the catheter site showed dressing intact, no leaking fluid around the catheter, no redness, no tenderness over the catheter insertion area. plan: status post postoperative day 1 for left total knee arthroplasty with adductor canal catheter for pain control. Patient was discussed to continue the medication at the rate of 14 mL per hour until the pump is completely empty and instructed the patient how to discontinue the catheter.
[2024-07-09] MEDS: SPIRONOLACTONE 25 MG TAB PO SCH (10:40)
[2024-07-09] MEDS: CITALOPRAM HYDROBROMIDE 20 MG TAB PO SCH (10:41)
[2024-07-09] MEDS: GLIMEPIRIDE 4 MG TAB PO SCH (10:41)
[2024-07-09] MEDS: ATORVASTATIN 20 MG TAB PO SCH (10:41)
[2024-07-09] MEDS: MULTIVITAMINS, THERA 1 EACH TAB PO SCH ×2 (10:42→11:45)
[2024-07-09] MEDS: POTASSIUM CHLORIDE ER 10 MEQ TAB.ER.PRT PO SCH (10:42)
[2024-07-09] MEDS: HYDROcodone/APAP 10-325MG 1 EACH TAB PO PRN (10:43)
[2024-07-09] MEDS: RIVAROXABAN 10 MG TAB PO SCH (10:43)
[2024-07-09 11:21] LABS: Glucose,Whole Blood 229 mg/dL (70-110)
--- NOTE | 2024-07-09 11:23 | P.PN ---
Subjective Progress Note Date: 07/09/24 Principal diagnosis: Left knee osteoarthritis Patient was seen at bedside this morning sitting up in chair with dressing present over left knee. Patient says she did have a difficult time working with therapy this morning and was unable to perform stairs. She says she has incre ased pain when she bears weight the left lower extremity even while using walker. Patient is hoping to stable morning for additional pain control and therapy. Patient says she has urinated since surgery without issue. Patient says she has not had bowel movement yet, however, patient says she has been passing gas. Patient denies any other issues at this time. Objective - Vital Signs Vital signs: Vital Signs Temp 98.0 F 07/09/24 07:49 Pulse 84 07/09/24 07:49 Resp 16 07/09/24 07:49 BP 159/76 07/09/24 07:49 Pulse Ox 92 L 07/09/24 07:49 FiO2 Intake & Output 07/08/24 07/09/24 07/09/24 18:59 06:59 18:59 Intake Total 1551 Output Total 50 Balance 1501 Weight 113.5 kg Intake: IV 1551 Output: Estimated Blood Loss 50 Other: Voiding Method Toilet # Voids 1 4 - Exam Left knee: Incision is clean, dry, and intact. The exofin fusion tape is in good condition. There is minimal soft tissue swelling and ecchymosis surrounding the medial and lateral aspects of the incision. Calf is soft, no tenderness with palpation. Plantar flexion, dorsiflexion, EHL, FHL are intact. Sensory exam to light touch throughout the extremity is intact, dorsal pedis pulses 2+. - Labs CBC & Chem 7: 07/09/24 03:22 Labs: Abnormal Lab Results - Last 24 Hours (Table) 07/08/24 07/08/24 07/08/24 Range/Units 14:26 16:39 20:10 RBC (4.10-5.20) X 10*6/uL Hgb (12.0-15.0) g/dL Hct (37.2-46.3) % Monocytes # (0.20-1.00) X 10*3/uL POC Glucose (mg/dL) 150 H 204 H 205 H (70-110) mg/dL Hemoglobin A1c (<=6.0) % 07/09/24 07/09/24 07/09/24 Range/Units 03:22 03:22 06:10 RBC 4.08 L (4.10-5.20) X 10*6/uL Hgb 11.8 L (12.0-15.0) g/dL Hct 36.2 L (37.2-46.3) % Monocytes # 1.08 H (0.20-1.00) X 10*3/uL POC Glucose (mg/dL) 203 H (70-110) mg/dL Hemoglobin A1c 8.7 H (<=6.0) % Assessment and Plan Assessment: 1. Left knee osteoarthritis - Postoperative day 1 status post left total knee arthroplasty Plan: 1. Left knee osteoarthritis - left total knee arthroplasty performed yesterday, 07/08/2024. Patient stable at bedside this morning. Patient unable to perform stairs with therapy this morning. We will keep patient one more night for pain control and additional therapy. Patient does have a walker at home. Plan for discharge home tomorrow with health services. 2. Appreciate medical management 3. Pain management - [place] 4. GI prophylaxis - senna 5. DVT prophylaxis - Xarelto in hospital. 6. PT/OT - weightbearing as tolerated with walker 7. Encourage incentive spirometer use 8. Discharge planning - plan for discharge home tomorrow with health services. Time with Patient: Less than 30
[2024-07-09 16:48] LABS: Glucose,Whole Blood 202 mg/dL (70-110)
[2024-07-09 19:56] LABS: Glucose,Whole Blood 242 mg/dL (70-110)
[2024-07-10 11:43] LABS: Glucose,Whole Blood 168 mg/dL (70-110)
[2024-07-10 11:49] LABS: Glucose,Whole Blood 169 mg/dL (70-110)
--- NOTE | 2024-07-10 14:40 | P.PN ---
Subjective Progress Note Date: 07/10/24 Principal diagnosis: Left knee osteoarthritis Patient was seen at bedside this morning sitting up in chair with dressing present over left knee. Patient says she did have a difficult time working with therapy this morning and did do stairs, but had a very difficult time. She says she has increased pain when she bears weight the left lower extremity even while using walker. Patient is hoping to stay for one more night for additional pain control and therapy. Patient says she has urinated since surgery without issue. Patient says she has not had bowel movement yet, however, patient says she has been passing gas. Patient denies any other issues at this time. Objective - Vital Signs Vital signs: Vital Signs Temp 99.4 F 07/10/24 08:13 Pulse 84 07/10/24 08:13 Resp 17 07/10/24 08:13 BP 139/69 07/10/24 08:13 Pulse Ox 93 L 07/10/24 08:13 FiO2 Intake & Output 07/09/24 07/10/24 07/10/24 18:59 06:59 18:59 Other: Voiding Method Toilet # Voids 4 3 - Exam Left knee: Incision is clean, dry, and intact. The exofin fusion tape is in good condition. There is minimal soft tissue swelling and ecchymosis surrounding the medial and lateral aspects of the incision. Calf is soft, no tenderness with palpation. Plantar flexion, dorsiflexion, EHL, FHL are intact. Sensory exam to light touch throughout the extremity is intact, dorsal pedis pulses 2+. - Labs CBC & Chem 7: 07/09/24 03:22 Labs: Abnormal Lab Results - Last 24 Hours (Table) 07/09/24 07/09/24 07/10/24 Range/Units 16:47 19:54 05:58 POC Glucose (mg/dL) 202 H 242 H 169 H (70-110) mg/dL 07/10/24 Range/Units 11:42 POC Glucose (mg/dL) 168 H (70-110) mg/dL Assessment and Plan Assessment: 1. Left knee osteoarthritis - Postoperative day 2 status post left total knee arthroplasty Plan: 1. Left knee osteoarthritis - left total knee arthroplasty performed 07/08/2024. Patient stable at bedside this morning. Patient did do stairs this morning but did have difficult time. We will keep patient one more night for pain control and additional therapy. Patient does have a walker at home. Plan for discharge home tomorrow with health services. 2. Appreciate medical management 3. Pain management - [place] 4. GI prophylaxis - senna 5. DVT prophylaxis - Xarelto in hospital. 6. PT/OT - weightbearing as tolerated with walker 7. Encourage incentive spirometer use 8. Discharge planning - plan for discharge home tomorrow with health services. Time with Patient: Less than 30
--- NOTE | 2024-07-10 14:49 | CONS ---
CONSULTATION The patient is status post knee surgery for medical management from Dr. Arguelles. Postop vital signs were reviewed. Pain is being controlled. Medications have been reordered. PAST MEDICAL HISTORY: CVA, TIA, diabetes mellitus, GERD, dyslipidemia, osteoarthritis, sleep apnea on CPAP machine, allergic rhinitis, history of carpal tunnel syndrome, MRSA, cholecystectomy, orthopedic surgery, uterine ablation. FAMILY HISTORY: Father with cancer of the stomach. Mother with cancer. HOME MEDICATIONS: 1. Prilosec 40 daily. 2. Zyrtec 10 daily. 3. Celexa 40 daily. 4. Potassium chloride 10 mEq daily. 5. Xanax 0.5 at night. 6. Lipitor 20 q.a.m. 7. Multivitamins. 8. Amaryl 4 mg daily. 9. Lidocaine 5% patch daily. 10.Spironolactone 25 daily. 11.Mounjaro 15 mg weekly on Sunday. PHYSICAL EXAMINATION: GENERAL: No acute distress. CARDIOVASCULAR: S1 and S2. LUNGS: Transmitted upper sounds. GI: Distended, obesity. MUSCULOSKELETAL: Left knee has a patch on. ASSESSMENT: Status post left knee surgery repair. Pain control. Breathing treatments as needed. Continue with Lipitor, Xanax, cefazolin for antibiotics, Celexa for depression and anxiety. for sugar control and took breathing treatments p.r.n. for her breathing, for shortness of breath. She is on Xarelto now for DVT prophylaxis. Prognosis guarded. Please see further orders. MMODL / IJN: [id number] /
--- NOTE | 2024-07-10 14:51 | PN ---
PROGRESS NOTE SUBJECTIVE: This is a 53-year-old woman who is status post knee surgery. She was confused last night. Currently today she is 92 on room air. OBJECTIVE: VITAL SIGNS: Blood pressure is 130s to 60s over 70s, respiratory rate 16 to 18, O2 70s to 80s, temp 98. CARDIOVASCULAR: S1, S2. LUNGS: Transmitted upper sounds. HEMATOLOGY: Negative Homans. PSYCH: Fair mood and affect. NEUROLOGIC: Alert and oriented x3. Hemoglobin A1c is 8.7. Sugars in the mid 200s. Hemoglobin is 11.8. Continue PT/OT. Possible discharge home with home medical care. MMODL / IJN: [id number] /
[2024-07-10 16:42] LABS: Glucose,Whole Blood 221 mg/dL (70-110)
[2024-07-10] MEDS: IPRATROPIUM-ALBUTEROL 3 ML NEB INHALATION PRN (20:55)
[2024-07-10 21:35] LABS: Glucose,Whole Blood 264 mg/dL (70-110)
[2024-07-11 05:25] LABS: Glucose,Whole Blood 184 mg/dL (70-110)
[2024-07-11] MEDS ORDERED: traMADol 50 MG TAB ONE (05:45)
[2024-07-11 09:05] VITALS: BP 109/55; PULSE 91; RESP 18
--- NOTE | 2024-07-11 10:38 | P.PN ---
Subjective Progress Note Date: 07/11/24 Principal diagnosis: Left knee osteoarthritis patient was seen at bedside this morning eating breakfast. Patient says pain is improving today. She says she is looking forward to working with therapy. She says she did have a temperature overnight. Denies any nausea/vomiting. Denies any significant Pain. Patient mentions she is using incentive spirometer, however, nurse mentions patient has not been using spirometer very much. Patient says she has urinated without issue since surgery. Patient has not had bowel movement yet, however, patient passing gas.Patient denies any other issues at this time. Objective - Vital Signs Vital signs: Vital Signs Temp 100.1 F H 07/11/24 07:32 Pulse 91 07/11/24 07:32 Resp 18 07/11/24 07:32 BP 109/55 07/11/24 07:32 Pulse Ox 95 07/11/24 07:32 FiO2 Intake & Output 07/10/24 07/11/24 07/11/24 18:59 06:59 18:59 Other: Voiding Method Toilet # Voids 3 - Exam Left knee: Incision is clean, dry, and intact. The exofin fusion tape is in good condition. There is minimal soft tissue swelling and ecchymosis surrounding the medial and lateral aspects of the incision. Calf is soft, no tenderness with palpation. Plantar flexion, dorsiflexion, EHL, FHL are intact. Sensory exam to light touch throughout the extremity is intact, dorsal pedis pulses 2+. - Labs CBC & Chem 7: 07/09/24 03:22 Labs: Abnormal Lab Results - Last 24 Hours (Table) 07/10/24 07/10/24 07/10/24 Range/Units 05:58 11:42 16:41 POC Glucose (mg/dL) 169 H 168 H 221 H (70-110) mg/dL 07/10/24 07/11/24 Range/Units 21:33 05:23 POC Glucose (mg/dL) 264 H 184 H (70-110) mg/dL Assessment and Plan Assessment: 1. Left knee osteoarthritis - Postoperative day 3 status post left total knee arthroplasty Plan: 1. Left knee osteoarthritis - left total knee arthroplasty performed 07/08/2024. Patient stable at bedside this morning. Patient pain under better control today, improving. Patient did have fever overnight. Temp wnl this morning. Patient does have a walker at home. Plan for discharge home today pending normal temps. 2. Appreciate medical management 3. Pain management - [place] 4. GI prophylaxis - senna 5. DVT prophylaxis - Xarelto in hospital. Home with eliquis 2.5 mg twice a day 2 weeks 6. PT/OT - weightbearing as tolerated with walker 7. Encourage incentive spirometer use 8. Discharge planning - plan for discharge home today with health services. Time with Patient: Less than 30
--- NOTE | 2024-07-11 10:43 | P.DS ---
Providers Date of admission: 07/09/24 14:20 Expected date of discharge: 07/11/24 Attending physician: Kamaljit Arguelles Consults: 07/08/24 12:40 Consult Physician Routine Consulting Provider: Dominick Enrique Reason/Comments: medical management s/p left total knee arthroplasty Do you want consulting provider notified?: Yes Primary care physician: Dominick Enrique Hospital Course: Date of admission: 07/08/2024 Date of discharge: 07/11/2024 Admission diagnosis: Left knee osteoarthritis Discharge diagnosis: same Attending physician: Dr. Arguelles Surgical procedures: left total knee arthroplasty Brief history: Patient is a 53-year-old female with a history of progressive primary left knee osteoarthritis. At this point patient has failed conservative treatment measures and has opted to proceed with a elective left total knee arthroplasty. Hospital course: Details of patient's surgery can be found in operative report. Patient tolerated the procedure well and was subsequently transported to orthopedic floor. Patient's orthopeidc and medical care was provided daily. Patient had daily laboratory tests performed for evaluation of overall blood counts. Patient had daily physical therapy to include strengthening range of motion as well as education with walker ambulation. Patient was treated with Xarelto for their postoperative DVT prophylaxis during their inpatient stay. Patient was noted to have a relatively uneventful postoperative course. Patient reported satisfactory pain control with oral pain medications by postoperative day 2. Patient showed satisfactory progress with physical therapy. Patient moved steadily through the program and had no difficulty meeting the goals by postoperative day 3. Given patient's otherwise satisfactory course and having met physical therapy goals, plan is to discharge patient home with health services on postoperative day 3. Discharge condition/disposition: Patient will be discharged home with health services in stable condition. Discharge medications: Instructions are given on resumption of patient's normal daily medications per primary care recommendation, in addition patient will be prescribed [place]; senna; Eliquis 2.5 mg twice a day 2 weeks. Discharge instructions: 1. Wound care and infection precautions, keep incision dry and covered while showering, no lotions, creams, moisturizers. No soaking, tubs, pools, hottubs. Do not scrub over the incision. 2. Weight-bear as tolerated with walker / cane until follow-up. 3. Ice and elevate when necessary. Do not exceed 20 minutes per hour with ice pack. 4. Utilize compression sleeve until seen at first follow up appointment. 5. Visiting nursing care. 6. Home physical therapy including home CPM. 7. Pain meds and anticoagulants per prescription. 8. Pain medication has potential to cause constipation. Increase oral fluid and fiber intake. Contact primary care provider if you have not had a bowel movement within 48 hours after discharge 9. No anti-inflammatory medication until discussed at first post operative visit, this including Motrin, Aleve, Mobic, Diclofenac. 10. Follow up in office at 2 weeks postop with Clark Dash PA-C / Dariel Ross PA-C 11. Follow up with your primary care doctor 7-10 days after discharge. 12. Contact [facility] with any questions, . Assessment: left knee osteoarthritis Procedures: left total knee arthroplasty Patient Condition at Discharge: Good Plan - Discharge Summary Discharge Rx Participant: Yes New Discharge Prescriptions: New Apixaban [Eliquis] 2.5 mg PO BID #60 tab HYDROcodone/APAP 10-325MG [[place] 10-325] 1 tab PO Q6HR PRN #28 tab PRN Reason: Pain Sennosides/Docusate Sodium [Senna Plus 8.6-50 mg Softgel] 1 each PO DAILY #20 capsule No Action Omeprazole [PriLOSEC] 40 mg PO AC-BRKFST Citalopram Hydrobromide [CeleXA] 40 mg PO QAM Cetirizine HCl [Zyrtec] 10 mg PO DAILY PRN PRN Reason: Allergy Symptoms Potassium Chloride [K-Tab ER] 10 meq PO DAILY Multivit-Min/Folic Acid/Biotin [Hair, Skin and Nails Softgel] 133.3 mcg PO DAILY Glimepiride [Amaryl] 4 mg PO DAILY Lidocaine 5% Patch [Lidoderm] 1 patch TOPICAL DAILY PRN PRN Reason: Pain Tirzepatide [Mounjaro] 15 mg SQ FR traMADol HCL 50 mg PO Q6H Meloxicam 7.5 mg PO QAM Atorvastatin [Lipitor] 20 mg PO QAM ALPRAZolam [Xanax] 0.5 mg PO HS Mv-Min/Folic/Vit K/Lut/[id number] [Alive Women's 50 Plus Tablet] 1 each PO DAILY Spironolactone 25 mg PO DAILY Discharge Medication List Omeprazole [PriLOSEC] 40 mg PO AC-BRKFST 04/23/14 [History] Cetirizine HCl [Zyrtec] 10 mg PO DAILY PRN 03/18/18 [History] Citalopram Hydrobromide [CeleXA] 40 mg PO QAM 03/18/18 [History] Potassium Chloride [K-Tab ER] 10 meq PO DAILY 03/18/18 [History] ALPRAZolam [Xanax] 0.5 mg PO HS 07/11/21 [History] Atorvastatin [Lipitor] 20 mg PO QAM 07/11/21 [History] Meloxicam 7.5 mg PO QAM 07/11/21 [History] Mv-Min/Folic/Vit K/Lut/Snxb699 [Alive Women's 50 Plus Tablet] 1 each PO DAILY 09/06/21 [History] Glimepiride [Amaryl] 4 mg PO DAILY 08/17/22 [History] Multivit-Min/Folic Acid/Biotin [Hair, Skin and Nails Softgel] 133.3 mcg PO DAILY 08/17/22 [History] Lidocaine 5% Patch [Lidoderm] 1 patch TOPICAL DAILY PRN 07/01/24 [History] Spironolactone 25 mg PO DAILY 07/01/24 [History] Tirzepatide [Mounjaro] 15 mg SQ FR 07/01/24 [History] traMADol HCL 50 mg PO Q6H 07/08/24 [History] Apixaban [Eliquis] 2.5 mg PO BID #60 tab 07/11/24 [Rx] HYDROcodone/APAP 10-325MG [[place] 10-325] 1 tab PO Q6HR PRN #28 tab 07/11/24 [Rx] Sennosides/Docusate Sodium [Senna Plus 8.6-50 mg Softgel] 1 each PO DAILY #20 capsule 07/11/24 [Rx] Follow up Appointment(s)/Referral(s): Dariel Ross PAC [PHYSICIAN SALON ASSISTANT] - 2 Weeks [facility],Equipment [NON-STAFF] - As Needed (*Please call [facility] once home to arrange delivery of the Continuous Passive Motion (CPM) machine. ) [facility], [NON-STAFF] - 1-2 Days ([facility] will call you to schedule your in home nursing and physical therapy visits. ) Patient Instructions/Handouts: Knee Replacement (DC), Knee Replacement (GEN) Activity/Diet/Wound Care/Special Instructions: Orthopedic Discharge Instructions: 1. Wound care and infection precautions, keep incision dry and covered while showering, no lotions, creams, moisturizers. No soaking, pools, hot tubs. Do not scrub over incision. 2. Weight-bear as tolerated with walker / cane until follow-up. 3. Ice and elevate when necessary. Do not exceed 20 minutes per hour with ice pack. 4. Utilize compression sleeve until seen at first follow up appointment. 5. Pain meds and anticoagulants per prescription. 6. Pain medication has potential to cause constipation. Increase oral fluid and fiber intake. Contact primary care provider if you have not had a bowel movement within 48 hours after discharge. 7. No anti-inflammatory medication until discussed at first post operative visit, this including Motrin, Aleve, Mobic, Diclofenac. 8. Follow up in office at 2 weeks postop with Clark Dash PA-C / Dariel Ross PA-C 9. Follow up with your primary care doctor 7-10 days after discharge. 10. Contact [facility] with any questions, . Keep incision clean, dry, intact. While showering, cover fusion tape with Saran wrap. Keep fusion tape on until follow-up appointment in office in 2 weeks. Discharge Disposition: HOME WITH HOME HEALTH SERVICES
[2024-07-11 11:05] LABS: Basophils # (A) 0.03 X 10*3/uL (0.00-0.10); Basophils % (A) 0.4 %; Eosinophils # (A) 0.18 X 10*3/uL (0.04-0.35); Eosinophils % (A) 2.4 %; HCT 31.6 % (37.2-46.3); HGB 10.3 g/dL (12.0-15.0); Lymphocytes # (A) 1.79 X 10*3/uL (0.90-5.00); Lymphocytes % (A) 24.3 %; MCH 29.2 pg (27.0-32.0); MCHC 32.6 g/dL (32.0-37.0); MCV 89.5 FL (80.0-97.0); Monocytes % (A) 12.2 %; NRBC Per 100 WBC 0 X 10*3/uL (0.00-0.01); Neutrophils # (A) 4.44 X 10*3/uL (1.80-7.70); Neutrophils % (A) 60.4 %; Platelet Count 206 X 10*3/uL (140-440); RBC 3.53 X 10*6/uL (4.10-5.20); RDW 14.6 % (11.5-14.5); WBC 7.36 X 10*3/uL (4.50-10.00)
[2024-07-11 11:56] LABS: Glucose,Whole Blood 243 mg/dL (70-110)
[2024-07-11 13:57] VITALS: TEMP 100.5
[2024-07-11] MEDS ORDERED: CEPHALEXIN 500 MG CAP PO SCH (16:00)
--- NOTE | 2024-07-20 22:41 | P.CONS ---
History of Present Illness - Reason for Consult Consult date: 07/11/24 Fever, right leg Requesting physician: Dominick Enrique - Chief Complaint Pain to the left knee since surgery - History of Present Illness Patient is a 53-year-old female with a past medical history significant for diabetes mellitus hyperlipidemia sleep apnea osteoarthritis CVA TIA patient was electively admitted to the hospital on 07/07/2024 for left knee replacement which was completed on 07/08/[address] Nicole, as patient was afebrile on admission to the hospital however the patient started running a fever of 100.1 on 07/09/2024 and did have a temperature of 102.9 F last evening patient was running low-grade fever 100.1 this morning patient has been managed by orthopedic and her primary care physician during this hospital stay patient has already been discharged by the orthopedic service this morning infectious disease was consulted this afternoon by the medical team regarding fever and red leg, patient denies having any headache or URI symptoms no chest pain shortness of breath or cough no nausea vomiting no abdominal pain or diarrhea has been complaining of pain to the left knee area to be sharp moderate intensity without radiation with associated swelling also complaining of some redness but did not have any open wound or any drainage Review of Systems Positive point and negatives has been mentioned in the HPI, complete review of systems was performed and all other systems are negative Past Medical History Past Medical History: CVA/TIA, Diabetes Mellitus, GERD/Reflux, Hyperlipidemia, Osteoarthritis (OA), Sleep Apnea/CPAP/BIPAP Additional Past Medical History / Comment(s): C-PAP MACHINE, SEASONAL ALLERGIES, ibs, SCIATICA, CARPAL TUNNEL SYNDROME BENI HANDS., STATES OCCASIONAL SWELLING IN HANDS & FEET. 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 MOTHER- PONV Past Psychological History: Anxiety Smoking Status: Former smoker Past Alcohol Use History: None Reported Additional Past Alcohol Use History / Comment(s): QUIT 2019. 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 Past Drug Use History: None Reported - Past Family History Father Family Medical History: Cancer Additional Family Medical History / Comment(s): PROSTATE & STOMACH CANCER Mother Family Medical History: Cancer Medications and Allergies Home Medications Medication Instructions Recorded Confirmed Type Omeprazole [PriLOSEC] 40 mg PO AC-BRKFST 04/23/14 07/01/24 History Cetirizine HCl [Zyrtec] 10 mg PO DAILY PRN 03/18/18 07/08/24 History Citalopram Hydrobromide [CeleXA] 40 mg PO QAM 03/18/18 07/01/24 History Potassium Chloride [K-Tab ER] 10 meq PO DAILY 03/18/18 07/08/24 History ALPRAZolam [Xanax] 0.5 mg PO HS 07/11/21 07/08/24 History Atorvastatin [Lipitor] 20 mg PO QAM 07/11/21 07/01/24 History Meloxicam 7.5 mg PO QAM 07/11/21 07/01/24 History Mv-Min/Folic/Vit K/Lut/Hhuu148 1 each PO DAILY 09/06/21 07/01/24 History [Alive Women's 50 Plus Tablet] Glimepiride [Amaryl] 4 mg PO DAILY 08/17/22 07/01/24 History Multivit-Min/Folic Acid/Biotin 133.3 mcg PO DAILY 08/17/22 07/01/24 History [Hair, Skin and Nails Softgel] Lidocaine 5% Patch [Lidoderm] 1 patch TOPICAL DAILY PRN 07/01/24 07/08/24 History Spironolactone 25 mg PO DAILY 07/01/24 07/08/24 History Tirzepatide [Mounjaro] 15 mg SQ FR 07/01/24 07/01/24 History traMADol HCL 50 mg PO Q6H 07/08/24 07/08/24 History Apixaban [Eliquis] 2.5 mg PO BID #60 tab 07/11/24 Rx HYDROcodone/APAP 10-325MG [[place] 1 tab PO Q6HR PRN #28 tab 07/11/24 Rx 10-325] Sennosides/Docusate Sodium [Senna 1 each PO DAILY #20 capsule 07/11/24 Rx Plus 8.6-50 mg Softgel] Allergies Allergy/AdvReac Type Severity Reaction Status Date / Time Sulfa (Sulfonamide Allergy Severe Anaphylaxis, Verified 07/08/24 08:16 Antibiotics) Hives hydrocodone bitartrate AdvReac "High Verified 07/08/24 08:16 [From Vicodin] dose" causes nausea & itching. Physical Exam Vitals: Vital Signs Temp Pulse Pulse Resp BP Pulse Ox 07/11/24 13:10 100.5 F H 07/11/24 11:56 98.9 F 07/11/24 10:25 98.9 F 07/11/24 07:32 100.1 F H 91 18 109/55 95 07/11/24 02:00 99.8 F H 84 122/74 94 L 07/10/24 22:30 102.9 F H 07/10/24 21:06 92 07/10/24 20:58 90 07/10/24 20:00 99.8 F H 91 151/72 93 L Intake and Output 07/11/24 07/11/24 07/11/24 06:59 14:59 22:59 Other: # Voids 1 GENERAL DESCRIPTION: Middle-aged female up in the chair no distress. No tachypnea or accessory muscle of respiration use. HEENT: Shows Pallor , no scleral icterus. Oral mucous membrane is dry. No pharyngeal erythema or thrush NECK: Trachea central, no thyromegaly. LUNGS: Unlabored breathing. Clear to auscultation anteriorly. No wheeze or crackle. HEART: S1, S2, regular rate and rhythm. No loud murmur ABDOMEN: Soft, no tenderness , guarding or rigidity, no organomegaly EXTREMITIES: Left knee incision is currently dressed with postop dressing she did have minimal swelling but no significant redness or warmth was noticed no blister or any drainage SKIN: No rash, no masses palpable. NEUROLOGICAL: The patient is awake, alert, oriented x3, mood and affect normal. Results CBC & Chem 7: 07/11/24 06:40 Labs: Abnormal Lab Results - Last 24 Hours (Table) 07/10/24 07/10/24 07/11/24 Range/Units 16:41 21:33 05:23 RBC (4.10-5.20) X 10*6/uL Hgb (12.0-15.0) g/dL Hct (37.2-46.3) % RDW (11.5-14.5) % POC Glucose (mg/dL) 221 H 264 H 184 H (70-110) mg/dL 07/11/24 07/11/24 Range/Units 06:40 11:54 RBC 3.53 L (4.10-5.20) X 10*6/uL Hgb 10.3 L (12.0-15.0) g/dL Hct 31.6 L (37.2-46.3) % RDW 14.6 H (11.5-14.5) % POC Glucose (mg/dL) 243 H (70-110) mg/dL Assessment and Plan (1) Postoperative fever Status: Acute Code(s): R50.82 - POSTPROCEDURAL FEVER SNOMED Code(s): 089608352 Plan: 1patient with a postop fever in this patient who is status post left knee replacement questionably reactive to the surgery as the patient fever pattern has improved without antibiotic therapy patient did not have any elevated white count and I did not appreciate any significant redness to the left knee area patient seem to be slightly upset on her discharge I did discuss with the patient in the presence of the nurse that I will personally call the orthopedics and hold the discharge till patient is afebrile for at least 24 hours and the blood culture that we obtained today remains to be negative however the patient then states she would like to go home 2patient has been advise if she has persistent fever at home or she develops any redness to the knee area or the incision open or drainage to let me know right away Multiple question concern answered Thank you for this consultation Dictation was produced using [employer] dictation software. please excuse any grammatical, word or spelling errors. Time with Patient: Greater than 30
== END 2024-07-11 17:14 | disposition home health service (06) ==
LOC: OR 07:38 → 4SSUR 12:55 → OR 07-09 14:20
PROVIDERS: ADMIT Orthopaedic Surgery; ATTEND Orthopaedic Surgery
DX: M17.12 Unilateral primary osteoarthritis, left knee (principal); I10 Essential (primary) hypertension; E78.5 Hyperlipidemia, unspecified; G47.33 Obstructive sleep apnea (adult) (pediatric); E11.9 Type 2 diabetes mellitus without complications; K21.9 Gastro-esophageal reflux disease without esophagitis; E66.9 Obesity, unspecified; Z68.42 Body mass index [BMI] 45.0-49.9, adult; F32.A Depression, unspecified; F41.9 Anxiety disorder, unspecified; Z79.84 Long term (current) use of oral hypoglycemic drugs; Z79.85 Long-term (current) use of injectable non-insulin antidiabetic drugs; Z79.899 Other long term (current) drug therapy; Z88.2 Allergy status to sulfonamides; Z88.5 Allergy status to narcotic agent; Z87.891 Personal history of nicotine dependence; Z86.73 Personal history of transient ischemic attack (TIA), and cerebral infarction without residual deficits
CPT/HCPCS: 64448; 64999; 81025; 83036; 84145; 85025; 86140; 87040; 94640

== ENCOUNTER 2024-12-14 13:36 | Emergency (ER) | payer BC ==
[2024-12-14 14:12] VITALS: RESP 18
--- NOTE | 2024-12-14 14:33 | ED ---
General Adult HPI - General Chief complaint: Extremity Injury, Lower Stated complaint: fell L knee injury Time Seen by Provider: 12/14/24 14:14 Source: patient, RN notes reviewed Mode of arrival: ambulatory Limitations: no limitations - History of Present Illness Initial comments: 54-year-old female presents to the emergency department for evaluation of fall with head and leg injury. Patient states that she slipped on her face yesterday causing her to fall. She states that she fell backward and hit her head on a running board of her feet. Unsure if she lost consciousness. She is not on blood thinners. She also reports pain in her left buttock radiating down her leg to her knee. She admits to recent knee replacement done by Dr. Arguelles. - Related Data Home Medications Medication Instructions Recorded Confirmed Omeprazole [PriLOSEC] 40 mg PO AC-BRKFST 04/23/14 07/01/24 Cetirizine HCl [Zyrtec] 10 mg PO DAILY PRN 03/18/18 07/08/24 Citalopram Hydrobromide [CeleXA] 40 mg PO QAM 03/18/18 07/01/24 Potassium Chloride [K-Tab ER] 10 meq PO DAILY 03/18/18 07/08/24 ALPRAZolam [Xanax] 0.5 mg PO HS 07/11/21 07/08/24 Atorvastatin [Lipitor] 20 mg PO QAM 07/11/21 07/01/24 Meloxicam 7.5 mg PO QAM 07/11/21 07/01/24 Mv-Min/Folic/Vit K/Lut/[id number] 1 each PO DAILY 09/06/21 07/01/24 [Alive Women's 50 Plus Tablet] Glimepiride [Amaryl] 4 mg PO DAILY 08/17/22 07/01/24 Multivit-Min/Folic Acid/Biotin 133.3 mcg PO DAILY 08/17/22 07/01/24 [Hair, Skin and Nails Softgel] Lidocaine 5% Patch [Lidoderm] 1 patch TOPICAL DAILY PRN 07/01/24 07/08/24 Spironolactone 25 mg PO DAILY 07/01/24 07/08/24 Tirzepatide [Mounjaro] 15 mg SQ FR 07/01/24 07/01/24 traMADol HCL 50 mg PO Q6H 07/08/24 07/08/24 Previous Rx's Medication Instructions Recorded Apixaban [Eliquis] 2.5 mg PO BID #60 tab 07/11/24 HYDROcodone/APAP 10-325MG [Bard 1 tab PO Q6HR PRN #28 tab 07/11/24 10-325] Sennosides/Docusate Sodium [Senna 1 each PO DAILY #20 capsule 07/11/24 Plus 8.6-50 mg Softgel] Allergies Allergy/AdvReac Type Severity Reaction Status Date / Time Sulfa (Sulfonamide Allergy Severe Anaphylaxis, Verified 12/14/24 14:12 Antibiotics) Hives Review of Systems ROS Statement: Those systems with pertinent positive or pertinent negative responses have been documented in the HPI. ROS Other: All systems not noted in ROS Statement are negative. Past Medical History Past Medical History: CVA/TIA, Diabetes Mellitus, GERD/Reflux, Osteoarthritis (OA), Sleep Apnea/CPAP/BIPAP Additional Past Medical History / Comment(s): C-PAP MACHINE, SEASONAL ALLERGIES, ibs, SCIATICA, CARPAL TUNNEL SYNDROME BENI HANDS., STATES OCCASIONAL SWELLING IN HANDS & FEET. TIA 2014- no residual effects, shingles History of Any Multi-Drug Resistant Organisms: MRSA Date of last positivie culture/infection: 03/2006 MDRO Source:: LEFT CALF Past Surgical History: Cholecystectomy, Orthopedic Surgery, Uterine Ablation Additional Past Surgical History / Comment(s): Liposuction, SEVERE INJURY LEFT CALF WITH SEPSIS (2005)-debridement, ORIF left foot, Past Anesthesia/Blood Transfusion Reactions: Family History of Problems w/ Anesthesia, Motion Sickness, Postoperative Nausea & Vomiting (PONV) Additional Past Anesthesia/Blood Transfusion Reaction / Comment(s): PT STATES WAKES UP SINGING OR YELLING & PONV. MOTHER- PONV Past Psychological History: Anxiety Smoking Status: Former smoker Past Alcohol Use History: None Reported Past Drug Use History: None Reported - Past Family History Father Family Medical History: Cancer Additional Family Medical History / Comment(s): PROSTATE & STOMACH CANCER Mother Family Medical History: Cancer General Exam Limitations: no limitations General appearance: alert, in no apparent distress Head exam: Present: atraumatic, normocephalic, normal inspection Eye exam: Present: normal appearance, PERRL, EOMI. Absent: scleral icterus, conjunctival injection, periorbital swelling Respiratory exam: Present: normal lung sounds bilaterally. Absent: respiratory distress, wheezes, rales, rhonchi, stridor Cardiovascular Exam: Present: regular rate, normal rhythm, normal heart sounds. Absent: systolic murmur, diastolic murmur, rubs, gallop, clicks Course Vital Signs 12/14/24 12/14/24 14:07 14:12 Temperature 98.3 F 98.1 F Pulse Rate 76 75 Respiratory 18 18 Rate Blood Pressure 113/71 107/70 O2 Sat by Pulse 97 98 Oximetry Medical Decision Making - Medical Decision Making Was pt. sent in by a medical professional or institution (, PA, LACQUER DIPPING MACHINE OPERATOR, urgent care, hospital, or long-term...) When possible be specific @ -[No] Did you speak to anyone other than the patient for history (EMS, parent, family, police, friend...)? What history was obtained from this source @ -[No] Did you review nursing and triage notes (agree or disagree)? Why? @ -[I reviewed and agree with nursing and triage notes] Were old charts reviewed (outside hosp., previous admission, EMS record, old EKG, old radiological studies, urgent care reports/EKG's, long-term records)? Report findings @ -[No old charts were reviewed] Differential Diagnosis (chest pain, altered mental status, abdominal pain women, abdominal pain men, vaginal bleeding, weakness, fever, dyspnea, syncope, headache, dizziness, GI bleed, back pain, seizure, CVA, palpatations, mental health, musculoskeletal)? @ -Differential Musculoskeletal Muscular strain, contusion, ligament sprain, fracture, arthritis, septic arthritis, bursitis, cellulitis, muscle spasm, nerve compression, DVT, arterial occlusion, herpes zoster, electrolyte abnormality, tumor.... This is not meant to be in all inclusive list EKG interpreted by me (3pts min.). @ -None X-rays interpreted by me (1pt min.). @ -[None done] CT interpreted by me (1pt min.). @ -[None done] U/S interpreted by me (1pt. min.). @ -[None done] What testing was considered but not performed or refused? (CT, X-rays, U/S, labs)? Why? @ -[None] What meds were considered but not given or refused? Why? @ -[None] Did you discuss the management of the patient with other professionals (professionals i.e. , PA, LACQUER DIPPING MACHINE OPERATOR, lab, RT, psych nurse, criminal justice social worker, clinical nursing director, teacher, security flex utility officer, pillowcase maker)? Give summary @ -[No] Was smoking cessation discussed for >3mins.? @ -[No] Was critical care preformed (if so, how long)? @ -[No] Were there social determinants of health that impacted care today? How? (Homelessness, low income, unemployed, alcoholism, drug addiction, transportation, low edu. Level, literacy, decrease access to med. care, longterm, rehab)? @ -[No] Was there de-escalation of care discussed even if they declined (Discuss DNR or withdrawal of care, Hospice)? DNR status @ -[No] What co-morbidities impacted this encounter? (DM, HTN, Smoking, COPD, CAD, Cancer, CVA, ARF, Chemo, Hep., AIDS, mental health diagnosis, sleep apnea, morbid obesity)? @ -[None] Was patient admitted / discharged? Hospital course, mention meds given and route, prescriptions, significant lab abnormalities, going to OR and other pertinent info. @ -[hospital course] Undiagnosed new problem with uncertain prognosis? @ -[No] Drug Therapy requiring intensive monitoring for toxicity (Heparin, Nitro, Insulin, Cardizem)? @ -[No] Were any procedures done? @ -[No] Diagnosis/symptom? @ -[default] Acute, or Chronic, or Acute on Chronic? @ -[default] Uncomplicated (without systemic symptoms) or Complicated (systemic symptoms)? @ -[default] Side effects of treatment? @ -[No] Exacerbation, Progression, or Severe Exacerbation? @ -[No] Poses a threat to life or bodily function? How? (Chest pain, [place], [place], pneumonia, PE, COPD, DKA, ARF, appy, cholecystitis, CVA, Diverticulitis, Homicidal, Suicidal, threat to staff... and all critical care pts) @ -[No] Disposition Clinical Impression: Fall, Contusion, hip Disposition: HOME SELF-CARE Condition: Stable Instructions (If sedation given, give patient instructions): Vertebral Compression Fracture (ED) Additional Instructions: Please follow up with orthopedics. Return to the emergency department for new or worsening symptoms. Is patient prescribed a controlled substance at d/c from ED?: No Referrals: Dominick Enrique MD [Primary Care Provider] - 1-2 days
--- NOTE | 2024-12-14 15:56 | XR ---
EXAMINATION TYPE: XR knee 4V LT DATE OF EXAM: 12/14/2024 3:52 PM COMPARISON: Previous radiograph 07/08/2024. CLINICAL INDICATION: Female, 54 years old with history of fall; PHH, pain TECHNIQUE: XR knee 4V LT views submitted.. FINDINGS: Previous left knee arthroplasty without periprosthetic lucency or acute fracture. Small sup rapatellar joint effusion. IMPRESSION: Left knee arthroplasty without acute fracture or hardware competition identified. [facility], , 12/14/2024 3:53 PM
--- NOTE | 2024-12-14 15:58 | XR ---
EXAMINATION TYPE: XR lumbar spine 2 or 3V DATE OF EXAM: 12/14/2024 3:52 PM COMPARISON: None. CLINICAL INDICATION: Female, 54 years old with history of fall; PHH, pain TECHNIQUE: XR lumbar spine 2 or 3V - Frontal, lateral and coned in L5-S1 lateral views of the spine. FINDINGS: 5 lumbar type vertebral bodies are present for the purposes of this examination. Age-indete rminate moderate T11 compression deformity partially visualized. Osseous structures are demineralized . Multilevel intervertebral disc space loss, most pronounced at L3-L4 where there is severe disc spac e loss and endplate sclerotic changes. Anterior ossified formation at multiple levels. 10 mm calculus overlying the inferior right kidney. Previous cholecystectomy. Multilevel facet arthropathy. IMPRESSION: 1. Age-indeterminate compression deformity of the partially visualized T11 vertebral body. Osseous s tructures demineralized. 2. Multilevel lumbosacral spinal degenerative changes as above. [facility], , 12/14/2024 3:55 PM
--- NOTE | 2024-12-14 15:59 | XR ---
EXAMINATION TYPE: XR Hip LT and AP Pelvis DATE OF EXAM: 12/14/2024 3:52 PM COMPARISON: None. CLINICAL INDICATION: Female, 54 years old with history of fall; PHH, pain TECHNIQUE: XR Hip LT and AP Pelvis; hip was examined in the frontal and lateral projections and a AP pelvis. FINDINGS: No acute fracture or dislocation. No unexpected radiopaque foreign body. Pelvic bones appea r intact as visualized. Mild degenerative osteophytes of the left hip. IMPRESSION: No acute fracture or dislocation. [facility], , 12/14/2024 3:56 PM
--- NOTE | 2024-12-14 16:07 | CT ---
EXAMINATION TYPE: CT brain cspine wo con DATE OF EXAM: 12/14/2024 4:01 PM COMPARISON: None. CLINICAL INDICATION: Female, 54 years old with history of fall; Slipped on ice yesterday, hit head - denies LOC. Left knee pain. TECHNIQUE: Brain: Multiple axial CT images of the brain were obtained without IV contrast. Cspine: Axial CT images from the skull base to the inferior aspect of T2 we obtained without intraven ous contrast. Coronal and sagittal reformatted images were also reviewed. . CT DLP: 1551.9 mGycm, Automated exposure control for dose reduction was used. FINDINGS: Brain: Extra-axial spaces: No abnormal extra-axial fluid collections. Ventricular system: Within normal limits Cerebral parenchyma: No acute intraparenchymal hemorrhage or mass effect. The calles-white junction is well differentiated. Cerebellum: Unremarkable. Mass effect: No evidence of midline shift. Intracranial vasculature: unremarkable Soft tissues: Normal. Calvarium/osseous structures: No depressed skull fracture. Paranasal sinuses and mastoid air cells: Clear. Visualized orbits: Orbital contents are intact. Cervical spine: Fracture: None. Osseous structures: Multilevel intervertebral disc space loss and evidence of anterior ossified forma tion. Vertebral alignment: Within normal limits. Spinal canal/Neural Foramina: Multilevel facet arthropathy/uncovertebral hypertrophy in combination w ith posterior disc osteophyte complexes cause varying degrees of neural foraminal spinal canal stenos is, most pronounced at C5-C6. Neck soft tissues: Prevertebral soft tissues are within normal limits. Other: The airway is patent. The lung apices are clear. IMPRESSION: 1. No acute intracranial process. 2. No acute fracture or traumatic subluxation of the cervical spine. [facility], , 12/14/2024 4:05 PM
[2024-12-14] MEDS: KETOROLAC 15 MG/ML 1 ML VIAL IM STA (16:19)
[2024-12-14 16:50] VITALS: BP 104/53; PULSE 73; TEMP 98.3
== END 2024-12-14 16:51 | disposition home or self-care (01) ==
LOC: EC 13:36
DX: S70.02XA Contusion of left hip, initial encounter (principal); Z87.891 Personal history of nicotine dependence; Z88.2 Allergy status to sulfonamides; W01.0XXA Fall on same level from slipping, tripping and stumbling without subsequent striking against object, initial encounter; Y93.02 Activity, running
CPT/HCPCS: 72100; 73502; 73564; 72125; 70450; 99284; 96372; J1885

== ENCOUNTER → 2025-01-10 | Outpatient (CLI) | payer BC ==
--- NOTE | 2025-01-10 09:30 | MR ---
EXAMINATION TYPE: MR lumbar spine wo/w con DATE OF EXAM: 01/10/2025 9:18 AM COMPARISON: None. CLINICAL INDICATION: Female, 54 years old with history of M46.06 SPINAL ENTHESOPATHY, LUMBAR REGION, Lower back pain, BLE radiculopathy S/P fall. IV Contrast: 11 cc Gadobutrol (None if empty) TECHNIQUE: Multiplanar, multisequence images of the lumbar spine were acquired without and with 11 mL intravenou s Gadobutrol gadolinium contrast. Findings: The lumbar vertebral segments are normal in height and alignment is no fracture or subluxation. There is marked degenerative disc disease at the L3-4 level where there is marked disc space narrowin g, circumferential disc bulge, spondylosis and discogenic endplate changes.. The combination of marked circumferential disc bulge with possible small posterior annular tear, mild thickening of ligamentum flavum and facet hypertrophy results in mild to moderate L3-4 spinal stenos is. There is mild loss of signal intensity and disc space narrowing at the L4-5 level indicating mild deg enerative disease. L1-2, L2-3 and L5-S1 discs are well preserved in height and signal intensity. There is no focal disc herniation. There is severe/near-complete obliteration of the neural foramina at the L3-4 level on the right and severe neural foraminal stenosis at the L3-4 level in the left. The remainder of the neural foramina throughout the lumbar spine. The paraspinal soft tissues are unremarkable. IMPRESSION: 1. Severe degenerative disease at the L3-4 level. 2. Moderate spinal stenosis at the L3-4 level 3.Severe bilateral neural foraminal stenosis at the L3-4 level [facility], , 01/10/2025 9:28 AM
== END | disposition home or self-care (01) ==
LOC: RADMRIMAIN 08:06
PROVIDERS: ATTEND Family Medicine
DX: M46.06 Spinal enthesopathy, lumbar region (principal); M51.16 Intervertebral disc disorders with radiculopathy, lumbar region; M47.26 Other spondylosis with radiculopathy, lumbar region; M48.061 Spinal stenosis, lumbar region without neurogenic claudication; M99.73 Connective tissue and disc stenosis of intervertebral foramina of lumbar region
CPT/HCPCS: 72158; A9585

== ENCOUNTER → 2025-03-27 | Outpatient (CLI) | payer BC ==
--- NOTE | 2025-03-27 15:13 | MM ---
Reason for Exam: Screening (asymptomatic). Last mammogram was performed 2 year(s) and 0 month(s) ago. Patient History: Menarche at age 11. Patient has no children. Postmenopausal. Maternal aunt had breast cancer. Mother had breast cancer, age 74. Risk Values: Vannesa 5 year model risk: 2.4%. NCI Lifetime model risk: 17.5%. Prior Study Comparison: 04/19/2015 Bilateral Screening Mammogram, [facility]. 12/10/2020 Bilateral Screening Mammogram, [facility]. 04/05/2023 Bilateral MG 3D screening mammo w/cad, [facility]. Tissue Density: There are scattered areas of fibroglandular density. Findings: Analyzed By CAD. There is no suspicious group of microcalcifications or new suspicious mass in either breast. Benign-appearing calcifications. Overall Assessment: Benign, BI-RAD 2 Management: Screening Mammogram of both breasts in 1 year. . Patient should continue monthly self-breast exams. A clinical breast exam by your physician is recommended on an annual basis. This exam should not preclude additional follow-up of suspicious palpable abnormalities. Note on Vannesa scores and lifetime risk: 1. A Vannesa score greater than 3% is considered moderate risk. If this is the case, consider specialist referral to assess eligibility for a risk reducing agent. 2. If overall lifetime risk for the development of breast cancer is 20% or higher, the patient may qualify for future screening with alternating mammogram and breast MRI. [facility], , 03/27/2025 3:07 PM. Electronically signed and approved by: Dominick Giron M.D. Radiologis
--- NOTE | 2025-03-30 08:58 | BD ---
EXAMINATION TYPE: Axial Bone Density DATE OF EXAM: 03/27/2025 CLINICAL HISTORY: 54 years old Female. ICD-10 CODE: Z78.0 MENOPAUSAL , Additional History: Height: 60.5 Weight: 246 FRAX RISK QUESTIONS: Family History (Parent hip fracture): no History of Fracture in Adulthood: yes Secondary Osteoporosis: no RISK FACTORS HISTORY OF: Surgery to Spine/Hip(right/left)/Wrist (right/left): no MEDICATIONS: Thyroid Medications: no Osteoporosis Medications: no EXAM MEASUREMENTS: Bone mineral densitometry was performed using the Encover System. Bone mineral density as measured about the Lumbar spine is: ----- L1-L4(G/cm2): 1.634 T Score Values are as follows: ----- L1: 1.8 ----- L2: 1.3 ----- L3: 6.5 ----- L4: 5.4 ----- L1-L4: 3.8 Z Score Values are as follows: ----- L1: 1.3 ----- L2: 0.8 ----- L3: 6.1 ----- L4: 4.9 ----- L1-L4: 3.3 Bone mineral density baseline Bone mineral density about the R hip (g/cm2): 1.237 Bone mineral density about the L hip (g/cm2): 1.226 T Score values are as follows: -----R Neck: 1.0 -----L Neck: 0.7 -----R Total: 1.8 -----L Total: 1.8 Z Score values are as follows: -----R Neck: 1.1 -----L Neck: 0.9 -----R Total: 1.6 -----L Total: 1.5 Bone mineral density baseline FRAX%s: The graph provided illustrates a 6.5% chance for a major osteoporotic fx and a 0.1% chance fo r the hips probability for fx in 10 years time. IMPRESSION: Normal (Values between +1 and -1 indicate normal bone mass). Consider repeating this study in 5 year s or sooner if there is some new clinical indication. NOTE: T-SCORE=SD OF THE YOUNG ADULT MEAN. [facility], , 03/30/2025 8:55 AM
== END | disposition home or self-care (01) ==
LOC: RADMAMWWP 14:44
PROVIDERS: ATTEND Family Medicine
DX: Z12.31 Encounter for screening mammogram for malignant neoplasm of breast (principal); R92.323 Mammographic fibroglandular density, bilateral breasts; R92.1 Mammographic calcification found on diagnostic imaging of breast; Z80.3 Family history of malignant neoplasm of breast; Z78.0 Asymptomatic menopausal state
CPT/HCPCS: 77063; 77067; 77080

== ENCOUNTER → 2025-04-27 | Outpatient (CLI) | payer BC ==
[2025-04-27 10:45] VITALS: BP 106/69; PULSE 702; RESP 17
--- NOTE | 2025-04-29 07:58 | P.PAINPG ---
PQRS Measure Charge Sheet Comment: HISTORY OF PRESENT ILLNESS: A 54 yr old female w son at side as a referral from [facility] presents today w severe and chronic LBP > 1 yr secondary to radiculopathy, spondylosis and facet arthropathy without myelopathy since injury on 12/13/24 for evaluation. Pt states pain level is provoked at 9 /10 in intensity, constant, localized in the lumbar spine, predominantly axial, sore in character w occasional shooting pain towards the thighs. Pain is provoked by bending, lifting. Pain is alleviated by deep tissue massages w cupping semi monthly since Dec 2024 till present, physician guided home stretches from Dr Monson 4-5 times weekly since Mar 2025, heat, medications, repositioning and rest . Oswestry axial pain score at 26. PMH: OA, CVA/TIA, Diabetes Mellitus, GERD, DEBORAH, Anxiety PSH: BL CTR, Cholecystectomy, L Calf Surgery, L Foot ORIF w Debridement, Uterine Ablation SH: Former tobacco user, No ETOH use, No illicit drug use FH: Fa- Prostate CA. Mo= CA All: See list Medications include Mobic, Tramadol REVIEW OF ORGAN SYSTEMS: CONSTITUTIONAL: No fevers or chills. No recent weight loss. NEUROLOGICAL: + numbness and tingling along the distal extremities. No seizure disorders or headaches. MUSCULOSKELETAL: + pain PSYCHIATRIC: Denies current depression or suicidal thoughts. Physical Examinations : Constitutional : Cooperative , not in acute distress . Neurologic : Cranial nerve II to XII intact. No focal neurological deficits. Psychiatric : alert & oriented x 3. Matching mood & appropriate affect. Judgment & insight intact. Musculoskeletal : Cervical Spine Motor strength in the deltoid and biceps: Normal right side. Normal Left side Motor strength biceps and the wrist extensors: Normal right side . Normal left side Motor strength in the triceps muscle: Normal right side. Normal left side Deep tendon reflexes: Normal at the biceps. Normal at Brachioradialis. Normal at triceps Vertebral body tenderness to deep palpation over Cervical facet loading test: positive bilaterally Spurling test: positive bilaterally Neck distraction test: positive bilaterally Slime sign: positive bilaterally Lumbar spine Motor strength lower extremities ,thigh and legs 5/5 Right side , 5/5 Left side Deep tendon reflexes : Normal Knee Jerk. Normal Ankle Jerk Vertebral body tenderness over L3 Robbins Test positive BL L3-L4 Lumbar facet Loading Test: positive Right / positive Left Range of motion of the lumbar spine Flexion 30 degrees, extension 10 degrees Straight Leg Raise test: Left/ Right positive at degrees Cary test: positive right / positive left. Severe tenderness over the Sacroiliac joint on the Right / Left sides Gaenslen test: positive bilaterally Seated flexion test: positive bilaterally. Sacral spine : Severe tenderness over the Sacroiliac joint: right side / left side Range of motion: Flexion of the lumbar spine <60 degrees Range of motion: Extension of the lumbar spine <20 degrees Gaenslen's Test positive Cary test: positive right side / left side Thigh Thrust Test Sacral Thrust Test Imaging: MRI non contrast from 01/10/25 reviewed Assessment/ Plan : Lumbar radiculopathy Recommendation of JONAH L3-L4 #1. Would also benefit from BL RFA. Risks, benefits of procedure discussed and patient verbalized understanding. Admits to anti- coagulant use or medical history of diabetes. Protocol for discontinuation/ continuation of medications bud procedure discussed. All questions answered. I have spent greater than 30 minutes on patient care today. Dr Fraser was available by phone for the evaluation of this patient. The time was used to review the medical records including relevant urine studies and Prescription history (MAPs), review of the available imaging, evaluation and examination of the patient, coordination of care with the medical staff and if applicable referring physicians, as well as creation of the medical record - Pain Location Lower Back Non-Pharmacological Interventions: Heat, Ice, Massage Pharmacological Interventions: Medication PQRS Narrative: Smoking Status Former smoker Home Medications: Ambulatory Orders Omeprazole [PriLOSEC] 40 mg PO AC-BRKFST 04/23/14 Cetirizine HCl [Zyrtec] 10 mg PO DAILY PRN 03/18/18 Citalopram Hydrobromide [CeleXA] 40 mg PO QAM 03/18/18 Potassium Chloride [K-Tab ER] 10 meq PO DAILY 03/18/18 ALPRAZolam [Xanax] 0.5 mg PO HS 07/11/21 Atorvastatin [Lipitor] 20 mg PO QAM 07/11/21 Meloxicam 7.5 mg PO QAM 07/11/21 Mv-Min/Folic/Vit K/Lut/[id number] [Alive Women's 50 Plus Tablet] 1 each PO DAILY 09/06/21 Glimepiride [Amaryl] 4 mg PO DAILY 08/17/22 Multivit-Min/Folic Acid/Biotin [Hair, Skin and Nails Softgel] 133.3 mcg PO DAILY 08/17/22 Lidocaine 5% Patch [Lidoderm] 1 patch TOPICAL DAILY PRN 07/01/24 Spironolactone 25 mg PO DAILY 07/01/24 Tirzepatide [Mounjaro] 15 mg SQ FR 07/01/24 traMADol HCL 50 mg PO Q6H 07/08/24 Apixaban [Eliquis] 2.5 mg PO BID #60 tab 07/11/24 HYDROcodone/APAP 10-325MG [Hart 10-325] 1 tab PO Q6HR PRN #28 tab 07/11/24 Sennosides/Docusate Sodium [Senna Plus 8.6-50 mg Softgel] 1 each PO DAILY #20 capsule 07/11/24 diazePAM [Valium] 10 mg PO DAILY 1 Days #1 tab 04/27/25 Controlled Substance Measures - Controlled Substance Measures Is patient prescribed a controlled substance at discharge?: Yes When asked, does pt state using other controlled substances?: Yes If prescribed controlled substance>3 days was MAPS reviewed?: Prescribed <3 Days
== END ==
LOC: PNWHC3 10:21
PROVIDERS: ATTEND Specialist
DX: M47.26 Other spondylosis with radiculopathy, lumbar region (principal); Z88.2 Allergy status to sulfonamides; Z87.891 Personal history of nicotine dependence
CPT/HCPCS: 99212